=== PATIENT | female | born 1950 | race Caucasian/White ===

== ENCOUNTER 2023-03-09 16:18 | Observation (INO) ==
--- NOTE | 2023-03-09 16:47 | ED Triage Note ---
Date of Service March 09, 2023 History of Present Illness This patient was briefly evaluated while in triage. An abbreviated physical exam was performed. This patient is a 72-year-old Female who presents to the ED for evaluation of A- flutter. She had been having some chest pressure, fatigue, shortness of breath, and dizziness. She has had some nausea, fevers, headaches which occurred about 10 days ago. She went to her PCP today and was sent here. Physical Exam VITALS: Vitals are noted on the nurse's note and reviewed by myself. GENERAL: This is a 72-year-old female, in no acute distress, nondiaphoretic, well-developed well-nourished. HEART: Tachycardic, no murmurs gallops or rubs. LUNGS: Clear to auscultation bilaterally without wheezes, rales or rhonchi. NEURO: Patient was alert and oriented to person place and time. Initial orders for labs and / or imaging were placed and patient was placed in the waiting area until a bed is available. Please see further documentation for the full ED course. MDM / Impression Impression Impression: Atrial flutter
[2023-03-09] MEDS ORDERED: dilTIAZem HCl 5 MG/ML 5 ML VIAL IV STA (17:03)
[2023-03-09] MEDS ORDERED: SODIUM CHLORIDE 0.9% 1000ML 1,000 ML IV ONE (17:03)
--- NOTE | 2023-03-09 17:06 | Emergency Department Note ---
Impression & Plan Atrial flutter ADMIT ED Provider Note HPI: The patient is a 72-year-old female who presents emergency department chief complaint of palpitations. Patient states that she believes the palpitations been ongoing for at least 24 to 48 hours. Patient states that they have been intermittent in nature. On arrival here to the ED, the patient is noted to be tachycardic at 153, EKG is consistent with what appears to be atrial flutter. Patient denies any chest pain. Blood pressure stable on arrival at 131/55, the patient is saturating well on room air on arrival and otherwise appears to be in no acute distress. ROS: - Per HPI Differential Diagnosis: Atrial fibrillation with RVR, atrial flutter, SVT, amongst other potential pathologies. *Outpatient medications and allergy history reviewed. *Pertinent external medical records reviewed. PE: General: Alert HEENT: Normocephalic, trachea midline Eyes: Extraocular eye movement is intact, no scleral erythema Pulmonary: Clear to auscultation bilaterally, no wheezing Cardio: Tachycardic rate with regular rhythm GI: Abdomen is soft to palpation : No suprapubic tenderness MSK: No evidence of trauma or malformation of the extremities, no edema Skin: No evidence of rash Neuro: Alert, no focal deficits Psychiatric: Cooperative night monitor: (As interpreted by myself): - An order was placed for continuous cardiac monitoring - Patient was noted to be in atrial flutter with rate of 149 EKG: (As interpreted by myself): Rate: 151 Rhythm: Atrial flutter with 2-1 block Intervals: QTc 504 ms, otherwise within normal limits ST changes: No ST elevation Time: 1650 EKG #2: (As interpreted by myself): Rate: 73 Rhythm: Atrial flutter with 4-1 block Intervals: Within normal limits ST changes: No ST elevation Time: 1723 Interventions provided in ED: -IV fluid bolus, IV diltiazem bolus, IV diltiazem drip, IV Medical Decision Making: Shortly after the patient arrived she was placed on monitor tech, per my interpretation EKG on arrival shows evidence of atrial flutter with 2-1 AV block. Patient is otherwise hemodynamically stable, she denies any chest pain. Patient was ordered an IV fluid bolus as well as a dose of IV diltiazem, this did result in rate improvement into the 80s. Lab work shows no leukocytosis, hemoglobin is stable, platelet count is normal, CMP does not show any critical electrolyte abnormalities, creatinine is slightly elevated at 1.46 however this is baseline for the patient. Troponin is slightly elevated at 41.6 which I suspect is secondary to demand ischemia secondary to tachycardia/atrial flutter as the patient does not have any chest pain. I have low suspicion for ACS. On reevaluation the patient's heart rate did increase slightly into the low 100s, she was therefore given a dose of IV metoprolol and placed on diltiazem drip. Heart rate on reassessment he is in the 80s. I discussed all the above findings with the patient, she is in agreement for admission for further management. Given the patient's renal failure in addition to history of subdural hematoma, will defer anticoagulation strategy to the inpatient team. [facility] hospitalist service was consulted for admission and the patient was placed for admission in stable condition. Consultants: Hospitalist service, Dr. Sánchez Disposition discussion held by myself with: Patient * CRITICAL CARE TIME: ( 38 ) minutes -Time spent independent of any procedures in management of patient with tachyarrhythmia/atrial flutter requiring IV rate control medications, time spent at the bedside, interpretation of diagnostic studies, discussion with other healthcare providers and arrangement of admission Diagnosis: 1. Atrial flutter, acute, new onset 2. Elevated high-sensitivity troponin level 3. Chronic kidney disease Disposition: Admission Noel Mattson DO Emergency Medicine Past Med/Surg History Medical History (Updated 03/09/23 @ 19:12 by Noel Mattson DO) ADD (attention deficit disorder) no longer on medications Chronic back pain Chronic renal insufficiency GERD (gastroesophageal reflux disease) Insomnia Migraines Occlusion of left vertebral artery Surgical History H/O discectomy 2019 C7 with fusion [facility] H/O laminectomy 2017 H/O spinal fusion L5-S1 anterior approach done in [place] 1971 Hx of appendectomy 1967 [place] Family History Mother Breast cancer Diabetes Stroke Hypertension Grandfather (Maternal) Myocardial infarction Denies family history of Ovarian cancer Prostate cancer Colorectal cancer Social History Smoking Status: Never smoker Tobacco Type: Cigarettes Age Started Using Tobacco: 16; Age Quit Using Tobacco: 51; Second Hand Exposure: No; Do You Dip or Chew Tobacco: No; Hx Alcohol Use: Yes Alcohol type: wine Alcohol Intake Frequency: 4 or More x per/Week Hx Substance Use: No Preferred Language: Tongan Communication Ability: Effective Visual Impairment: Limited Hearing Ability: Normal Gauge Operator Required: No Beliefs That Will Affect Care: None marital status: Current Living Situation: Spouse current occupational status: retired How many Children do You have: 0 Feels Safe at Home: Yes Childhood Exposure to Second-Hand Smoke: Yes Diet: vegan caffeine: Yes (coffee) during the past year weight has: remained stable Dental Care, Regularly: Yes Physical Activity Frequency: Daily Seatbelt Use: always Sunscreen Use: Yes Do you think of yourself as: lesbian/zapata/homosexual Sexual Activity: has been sexually active within the last 12 months Gender Identity: Female Assistive Devices: Glasses Allergies Allergies Allergy/AdvReac Type Severity Reaction Status Date / Time No Known Allergies Allergy Verified 03/09/23 17:23 Home Meds Home Medications Medication Instructions Recorded Confirmed famotidine 20 mg tablet 20 mg PO DAILYBB 03/09/23 03/09/23 gabapentin 300 mg capsule 300 mg PO HS 03/09/23 03/09/23 Previous Rx's Medication Instructions Recorded levothyroxine 75 mcg tablet 75 mcg PO DAILY #90 tabs 02/27/23 tramadol 100 mg tablet 100 mg PO Q6H PRN pain #90 tabs 02/27/23 trazodone 50 mg tablet 50 mg PO HS PRN insomnia #90 tabs 02/27/23 Results & Data (ED) Vital Signs Vital Signs - 24 hr 03/09/23 16:43 03/09/23 17:05 03/09/23 17:05 Temperature 36.8 C Temperature Source Temporal Artery Scan Pulse Rate 153 H Pulse Rate [Apical] 145 H Pulse Rhythm [Apical] Respiratory Rate 20 12 Respiratory Effort / Characteristics Non-Labored Spontaneous Non-Labored Respiratory Depth Normal Normal Respiratory Pattern Blood Pressure 131/55 L Blood Pressure [Right Arm] 127/94 Blood Pressure Mean 80 Blood Pressure Mean [Right Arm] 105 Pulse Oximetry 95 97 Oxygen Delivery Method Room Air Room Air Room Air Sepsis Recent Fever Within 48 Hours No Sepsis New/Unexplained Change in Mental Status No Sepsis Action Taken by Nursing No Action Required 03/09/23 17:05 03/09/23 17:12 03/09/23 17:18 Temperature Temperature Source Pulse Rate 146 H 73 Pulse Rate [Apical] Pulse Rhythm [Apical] Respiratory Rate Respiratory Effort / Characteristics Respiratory Depth Respiratory Pattern Blood Pressure Blood Pressure [Right Arm] Blood Pressure Mean Blood Pressure Mean [Right Arm] Pulse Oximetry 99 Oxygen Delivery Method Room Air Sepsis Recent Fever Within 48 Hours Sepsis New/Unexplained Change in Mental Status Sepsis Action Taken by Nursing 03/09/23 17:25 03/09/23 18:15 03/09/23 18:24 Temperature Temperature Source Pulse Rate 102 H Pulse Rate [Apical] 75 81 Pulse Rhythm [Apical] Irregular Irregular Respiratory Rate 18 14 Respiratory Effort / Characteristics Non-Labored Non-Labored Respiratory Depth Normal Normal Respiratory Pattern Regular Regular Blood Pressure Blood Pressure [Right Arm] 123/85 125/86 Blood Pressure Mean Blood Pressure Mean [Right Arm] 97 99 Pulse Oximetry 99 96 Oxygen Delivery Method Room Air Room Air Sepsis Recent Fever Within 48 Hours Sepsis New/Unexplained Change in Mental Status Sepsis Action Taken by Nursing 03/09/23 18:49 Temperature Temperature Source Pulse Rate Pulse Rate [Apical] 76 Pulse Rhythm [Apical] Respiratory Rate 14 Respiratory Effort / Characteristics Respiratory Depth Normal Respiratory Pattern Blood Pressure Blood Pressure [Right Arm] 139/89 Blood Pressure Mean Blood Pressure Mean [Right Arm] 105 Pulse Oximetry 98 Oxygen Delivery Method Room Air Sepsis Recent Fever Within 48 Hours Sepsis New/Unexplained Change in Mental Status Sepsis Action Taken by Nursing Laboratory Data 03/09/23 16:58 03/09/23 16:58 Lab Results 03/09/23 03/09/23 Range/Units 16:58 16:58 WBC 7.56 (4.8-10.8) K/ul RBC 4.53 (4.20-5.40) M/uL Hgb 14.7 (12.0-16.0) g/dl Hct 43.4 (37.0-47.0) % MCV 95.8 (80.0-100.0) fL MCH 32.5 (25.0-34.0) pg MCHC 33.9 (32.0-36.0) g/dL RDW Std Deviation 42.4 (36.4-46.3) fL RDW Coeff of Carla 12.2 (11.5-14.5) % Plt Count 389 (130-400) K/uL MPV 8.2 L (9.4-12.4) fL Immature Gran % (Auto) 0.8 % Neut % (Auto) 58.7 % Lymph % (Auto) 28.4 % [place] % (Auto) 8.6 % Eos % (Auto) 2.4 % Baso % (Auto) 1.1 % Neut # (Auto) 4.44 (1.40-6.50) K/uL Lymph # (Auto) 2.15 (1.2-3.4) K/uL [place] # (Auto) 0.65 H (0.11-0.59) K/uL Eos # (Auto) 0.18 (0-0.50) K/uL Baso # (Auto) 0.08 (0-0.2) K/uL Immature Gran # (Auto) 0.06 (0.01-0.20) K/uL Sodium 139 (136-145) mmol/L Potassium 4.5 (3.5-5.1) mmol/L Chloride 108 H (98-107) mmol/L Carbon Dioxide 26 (21-32) mmol/L Anion Gap 5 (3-11) BUN 18 (6-23) mg/dl Creatinine 1.46 H (0.6-1.2) mg/dl Est Cr Clr Drug Dosing Not Reportable Est GFR ( Amer) 40.7 ml/min Est GFR (Non-Af Amer) 35.1 ml/min BUN/Creatinine Ratio 12.3 (10-20) Glucose 103 H (70-99(Fasting)) mg/dl Calcium 9.3 (8.6-10.3) mg/dl Total Bilirubin 0.3 (0.2-1.0) mg/dl AST 21 (13-39) U/L ALT 21 (7-52) U/L Alkaline Phosphatase 90 (34-104) U/L Troponin I High Sens 41.6 H (0-14) pg/ml Total Protein 7.4 (6.0-8.3) gm/dl Albumin 4.0 (3.4-5.0) gm/dl Globulin 3.4 (2.5-4.0) gm/dl Albumin/Globulin Ratio 1.2 (0.9-2) Administered Medications Diltiazem HCl 125 mg/ Dextrose 125 mls @ 5 mls/hr IV .Q24H [facility]; Protocol Stop: 04/08/23 18:14 Last Admin: 03/09/23 18:44 Dose: 5 mg/hr, 5 mls/hr Documented By: MELL Co-signed By: ACC Discontinued Medications Diltiazem HCl (Diltiazem Hcl 5 Mg/Ml 5 Ml Vial) 15 mg IV NOW STA Stop: 03/09/23 17:04 Last Admin: 03/09/23 17:10 Dose: 15 mg Documented By: MELL Co-signed By: ARS Sodium Chloride (Nss 1000ml) 1,000 mls @ 999 mls/hr IV .Q1H1M ONE Stop: 03/09/23 18:03 Last Infusion: 03/09/23 18:09 Dose: 0 mls/hr Documented By: Admin: 03/09/23 17:07 Dose: 999 mls/hr Documented By: MELL Metoprolol Tartrate (Metoprolol Tartrate 1 Mg/Ml Vial) 5 mg IV NOW STA Stop: 03/09/23 18:00 Last Admin: 03/09/23 18:15 Dose: 5 mg Documented By: MELL Miscellaneous (Stat Iv Infusion Titration Per Protocol) 1 each N/A NOW STA Stop: 03/09/23 18:12 Last Admin: 03/09/23 18:44 Dose: 1 each Documented By: MELL Imaging Data Radiologist's Impression: Chest X-Ray 03/09/23 16:47 XR chest 1V portable HISTORY: 72 years-old Female Chest pain, nonspecific COMPARISON: 08/02/2022 TECHNIQUE: AP view of the chest FINDINGS: Cardiomediastinal and hilar silhouettes are within normal limits. There is no pneumothorax, pleural effusion, airspace consolidation or pulmonary edema. Chronic left-sided rib fractures. Cervical spinal fusion hardware. IMPRESSION: No acute process. ACT 112: Negative or not required by law. The above report was generated using voice recognition software. It may contain grammatical, syntax or spelling errors. Electronically signed by: Ang Ch M.D. 03/09/2023 5:45 PM Discharge Plan Visit Data Chief Complaint: Cardiac Assessment Stated Complaint: A FIB ED Provider: Noel Mattson Discharge Problem: Atrial flutter Forms Stand Alone Forms: [facility] Prescriptions Prescriptions: No Action trazodone 50 mg tablet 50 mg PO HS PRN (Reason: insomnia) Qty: 90 1RF tramadol 100 mg tablet 100 mg PO Q6H PRN (Reason: pain) Qty: 90 0RF levothyroxine 75 mcg tablet 75 mcg PO DAILY Qty: 90 1RF famotidine 20 mg tablet 20 mg PO DAILYBB gabapentin 300 mg capsule 300 mg PO HS Referrals Referrals: Jackie Rosa MD [Primary Care Provider] -
[2023-03-09 17:20] LABS: Basophils # (auto) 0.08 K/uL (0-0.2); Basophils % (auto) 1.1 %; Eosinophils # (auto) 0.18 K/uL (0-0.50); Eosinophils % (auto) 2.4 %; Hematocrit (blood only) 43.4 % (37.0-47.0); Hemoglobin 14.7 g/dl (12.0-16.0); Immature Granulocytes # (auto) 0.06 K/uL (0.01-0.20); Immature Granulocytes % (auto) 0.8 %; Lymphocytes # (auto) 2.15 K/uL (1.2-3.4); Lymphocytes % (auto) 28.4 %; Mean Corpuscular Hemoglobin 32.5 pg (25.0-34.0); Mean Corpuscular Hgb Conc 33.9 g/dL (32.0-36.0); Mean Corpuscular Volume 95.8 fL (80.0-100.0); Mean Platelet Volume 8.2 fL (9.4-12.4); Monocytes # (auto) 0.65 K/uL (0.11-0.59); Monocytes % (auto) 8.6 %; Neutrophils # (auto) 4.44 K/uL (1.40-6.50); Neutrophils % (auto) 58.7 %; Platelet Count 389 K/uL (130-400); RDW Coefficient of Variation 12.2 % (11.5-14.5); RDW Standard Deviation 42.4 fL (36.4-46.3); Red Blood Count 4.53 M/uL (4.20-5.40); White Blood Count 7.56 K/ul (4.8-10.8)
[2023-03-09 17:38] LABS: Alanine Aminotransferase 21 U/L (7-52); Albumin Globulin Ratio 1.2 (0.9-2); Alkaline Phosphatase 90 U/L (34-104); Anion Gap 5 (3-11); Aspartate Aminotransferase 21 U/L (13-39); BUN Creatinine Ratio 12.3 (10-20); Bilirubin,Total 0.3 mg/dl (0.2-1.0); Blood Urea Nitrogen 18 mg/dl (6-23); Calcium 9.3 mg/dl (8.6-10.3); Carbon Dioxide 26 mmol/L (21-32); Chloride 108 mmol/L (98-107); Est GFR (African American) 40.7 ml/min; Est GFR (Non-African American) 35.1 ml/min; Globulin 3.4 gm/dl (2.5-4.0); Glucose 103 mg/dl (70-99(Fasting)); Potassium 4.5 mmol/L (3.5-5.1); Sodium 139 mmol/L (136-145); Total Protein 7.4 gm/dl (6.0-8.3)
[2023-03-09 17:44] LABS: Troponin I High Sensitivity 41.6 pg/ml (0-14)
--- NOTE | 2023-03-09 17:46 | XRay Report ---
XR chest 1V portable HISTORY: 72 years-old Female Chest pain, nonspecific COMPARISON: 08/02/2022 TECHNIQUE: AP view of the chest FINDINGS: Cardiomediastinal and hilar silhouettes are within normal limits. There is no pneumothorax, pleural e ffusion, airspace consolidation or pulmonary edema. Chronic left-sided rib fractures. Cervical spinal fusion hardware. IMPRESSION: No acute process. ACT 112: Negative or not required by law. The above report was generated using voice recognition software. It may contain grammatical, syntax o r spelling errors. Electronically signed by: Ang Ch M.D. 03/09/2023 5:45 PM
[2023-03-09] MEDS ORDERED: METOPROLOL TARTRATE 1 MG/ML VIAL IV STA (17:59)
[2023-03-09] MEDS ORDERED: STAT IV Infusion **Titration per Protocol STA (18:11)
[2023-03-09] MEDS ORDERED: dilTIAZem HCL 125 MG in DEXTROSE 5% 100 ML IV SCH (18:15)
[2023-03-09 19:34] LABS: Magnesium 2.4 mg/dl (1.7-2.4)
--- NOTE | 2023-03-09 20:10 | History & Physical Report ---
Date of Service March 09, 2023 Assessment & Plan (1) Atrial flutter with rapid ventricular response: (2) Chest pain: (3) Chronic renal insufficiency: (4) GERD (gastroesophageal reflux disease): (5) Chronic back pain: (6) Hypothyroid: (7) History of traumatic subdural hematoma: Plan New onset atrial flutter with RVR- The patient will be admitted to telemetry for serial cardiac enzymes, serial EKG's, cardiac rhythm monitoring and a 2-D echocardiogram with Dopplers. Potassium 4.5 and magnesium 2.4 Troponin 41.6, likely secondary to increased heart rate, but will continue to follow EKG shows atrial flutter with 4-1 block Continue Cardizem drip begun in the ED Consult cardiology We will order CT scan of head to further assess previous subdural hematoma prior to considering anticoagulation Chronic renal insufficiency- Creatinine 1.46, with range 1.32-1.55 Placed on NSS at 80 mils per hour x1 L and repeat laboratories in a.m. Hypothyroidism- Continue levothyroxine sodium 75 mcg daily GERD- Continue famotidine 40 mg with breakfast History of Present Illness Chief Complaint: The patient presents emergency department with complaint of 10 days of nausea, intermittent headaches, fatigue, muscle aches and generalized not feeling well. She has been renovating a house for a while, and yesterday was caring a lot of drywall, and felt her heart pounding. She went to her PCPs office today, and had an EKG which showed atrial flutter, and was referred to the ED for assessment Primary Care Provider: Jackie Rosa MD The patient is a 72-year-old with a past medical history including ADD, chronic back pain, chronic renal sufficiency, GERD, hypothyroidism, insomnia, migraines and occlusion of left vertebral artery. She did have a fall in July this year, where she injured her head, and there was question of a small subdural hematoma and left frontal area. She reports that she was sent out to the hospital, where they watch her, and no further intervention was performed. She does take an aspirin a couple times a week. She presents to the emergency department today after symptoms as noted above, and for further management of atrial flutter. The ED physician Dr. Fry has spoken with director mba on- call Dr. Nciole, and plan will be to admit patient to the telemetry unit on Cardizem drip, echocardiogram in the morning, and then discussion regarding possible cardioversion at a later date. Allergies Allergy/AdvReac Type Severity Reaction Status Date / Time No Known Allergies Allergy Verified 03/09/23 17:23 Home Medications Medication Instructions Recorded Confirmed Type levothyroxine 75 mcg tablet 75 mcg PO DAILY #90 tabs 02/27/23 03/09/23 Rx tramadol 100 mg tablet 100 mg PO Q6H PRN pain #90 tabs 02/27/23 03/09/23 Rx trazodone 50 mg tablet 50 mg PO HS PRN insomnia #90 tabs 02/27/23 03/09/23 Rx famotidine 20 mg tablet 20 mg PO DAILYBB 03/09/23 03/09/23 History gabapentin 300 mg capsule 300 mg PO HS 03/09/23 03/09/23 History Past Med/Surg History Medical History (Updated 03/09/23 @ 20:05 by Justice Sánchez MD) ADD (attention deficit disorder) no longer on medications Chronic back pain Chronic renal insufficiency GERD (gastroesophageal reflux disease) History of traumatic subdural hematoma Insomnia Migraines Occlusion of left vertebral artery Surgical History H/O discectomy 2019 C7 with fusion [facility] H/O laminectomy 2016 H/O spinal fusion L5-S1 anterior approach done in [place] 1971 Hx of appendectomy 1967 [place] Family History Mother Breast cancer Diabetes Stroke Hypertension Grandfather (Maternal) Myocardial infarction Denies family history of Ovarian cancer Prostate cancer Colorectal cancer Social History Smoking Status: Never smoker Tobacco Type: Cigarettes Age Started Using Tobacco: 16; Age Quit Using Tobacco: 51; Second Hand Exposure: No; Do You Dip or Chew Tobacco: No; Hx Alcohol Use: Yes Alcohol type: wine Alcohol Intake Frequency: 4 or More x per/Week Hx Substance Use: No Preferred Language: Serbian Communication Ability: Effective Visual Impairment: Limited Hearing Ability: Normal Planisher Required: No Beliefs That Will Affect Care: None marital status: Current Living Situation: Spouse current occupational status: retired How many Children do You have: 0 Feels Safe at Home: Yes Childhood Exposure to Second-Hand Smoke: Yes Diet: vegan caffeine: Yes (coffee) during the past year weight has: remained stable Dental Care, Regularly: Yes Physical Activity Frequency: Daily Seatbelt Use: always Sunscreen Use: Yes Do you think of yourself as: lesbian/zapata/homosexual Sexual Activity: has been sexually active within the last 12 months Gender Identity: Female Assistive Devices: Glasses Review of Systems Review of Systems: The patient denies chest pain, cough, lower extremity swelling, sore throat, fevers, chills, sweats, vomiting, diarrhea , constipation, abdominal pain, pelvic pain, blood in urine or stool, dysuria, urinary frequency or urgency, lightheadedness, dizziness, headache, memory loss, loss of consciousness, rash, abnormal bruising or bleeding, imbalance, focal or generalized weakness, numbness or tingling in arms or legs, generalized arthralgias or myalgias, change in chronic back or neck pain, or night sweats. The review of systems is otherwise negative other than for that already noted above, and at least 10 systems have been reviewed. Physical Exam Physical Exam: The patient is awake, alert and oriented 3, well developed and well nourished, normocephalic and atraumatic, lying in bed and in no acute distress. HEENT--PERRL, EOMI, mucous membranes and oropharynx normal. Neck--supple. No JVD. No bruits. Thyroid normal, trachea midline, no adenopathy. Heart--normal S1 and S2. No murmurs, rubs or gallops. Lungs--clear bilaterally, no respiratory distress, no accessory muscle use. Abdomen--normal bowel sounds and soft. Nontender. Nondistended, no hernias or masses, no organomegaly. Extremities--no cyanosis or clubbing. No edema. Dermatologic--normal skin turgor, normal color, no abnormal lymph nodes, no rash. Neurologic--cranial nerves II through XII grossly intact. Rheumatologic--normal range of motion. Psychiatric--normal affect. Results & Data Results & Data Vital Signs (Past 12 Hours) Vital Signs Temp Pulse Pulse Resp BP BP Pulse Ox 03/09/23 18:49 76 14 139/89 98 03/09/23 18:24 81 14 125/86 96 03/09/23 18:15 102 H 03/09/23 17:25 75 18 123/85 99 03/09/23 17:18 73 03/09/23 17:12 146 H 03/09/23 17:05 99 03/09/23 17:05 145 H 12 127/94 97 03/09/23 17:05 03/09/23 16:43 36.8 C 153 H 20 131/55 L 95 O2 Del Method 03/09/23 18:49 Room Air 03/09/23 18:24 Room Air 03/09/23 18:15 03/09/23 17:25 Room Air 03/09/23 17:18 03/09/23 17:12 03/09/23 17:05 Room Air 03/09/23 17:05 Room Air 03/09/23 17:05 Room Air 03/09/23 16:43 Room Air Laboratory Results Laboratory Results WBC 7.56 K/ul (4.8-10.8) 03/09/23 16:58 RBC 4.53 M/uL (4.20-5.40) 03/09/23 16:58 Hgb 14.7 g/dl (12.0-16.0) 03/09/23 16:58 Hct 43.4 % (37.0-47.0) 03/09/23 16:58 MCV 95.8 fL (80.0-100.0) 03/09/23 16:58 MCH 32.5 pg (25.0-34.0) 03/09/23 16:58 MCHC 33.9 g/dL (32.0-36.0) 03/09/23 16:58 RDW Std Deviation 42.4 fL (36.4-46.3) 03/09/23 16:58 RDW Coeff of Carla 12.2 % (11.5-14.5) 03/09/23 16:58 Plt Count 389 K/uL (130-400) 03/09/23 16:58 MPV 8.2 fL (9.4-12.4) L 03/09/23 16:58 Immature Gran % (Auto) 0.8 % 03/09/23 16:58 Neut % (Auto) 58.7 % 03/09/23 16:58 Lymph % (Auto) 28.4 % 03/09/23 16:58 [place] % (Auto) 8.6 % 03/09/23 16:58 Eos % (Auto) 2.4 % 03/09/23 16:58 Baso % (Auto) 1.1 % 03/09/23 16:58 Neut # (Auto) 4.44 K/uL (1.40-6.50) 03/09/23 16:58 Lymph # (Auto) 2.15 K/uL (1.2-3.4) 03/09/23 16:58 [place] # (Auto) 0.65 K/uL (0.11-0.59) H 03/09/23 16:58 Eos # (Auto) 0.18 K/uL (0-0.50) 03/09/23 16:58 Baso # (Auto) 0.08 K/uL (0-0.2) 03/09/23 16:58 Immature Gran # (Auto) 0.06 K/uL (0.01-0.20) 03/09/23 16:58 Sodium 139 mmol/L (136-145) 03/09/23 16:58 Potassium 4.5 mmol/L (3.5-5.1) 03/09/23 16:58 Chloride 108 mmol/L (98-107) H 03/09/23 16:58 Carbon Dioxide 26 mmol/L (21-32) 03/09/23 16:58 Anion Gap 5 (3-11) 03/09/23 16:58 BUN 18 mg/dl (6-23) 03/09/23 16:58 Creatinine 1.46 mg/dl (0.6-1.2) H 03/09/23 16:58 Est Cr Clr Drug Dosing Not Reportable 03/09/23 16:58 Est GFR ( Amer) 40.7 ml/min 03/09/23 16:58 Est GFR (Non-Af Amer) 35.1 ml/min 03/09/23 16:58 BUN/Creatinine Ratio 12.3 (10-20) 03/09/23 16:58 Glucose 103 mg/dl (70-99(Fasting)) H 03/09/23 16:58 Calcium 9.3 mg/dl (8.6-10.3) 03/09/23 16:58 Magnesium 2.4 mg/dl (1.7-2.4) 03/09/23 16:58 Total Bilirubin 0.3 mg/dl (0.2-1.0) 03/09/23 16:58 AST 21 U/L (13-39) 03/09/23 16:58 ALT 21 U/L (7-52) 03/09/23 16:58 Alkaline Phosphatase 90 U/L (34-104) 03/09/23 16:58 Troponin I High Sens 41.6 pg/ml (0-14) H 03/09/23 16:58 Total Protein 7.4 gm/dl (6.0-8.3) 03/09/23 16:58 Albumin 4.0 gm/dl (3.4-5.0) 03/09/23 16:58 Globulin 3.4 gm/dl (2.5-4.0) 03/09/23 16:58 Albumin/Globulin Ratio 1.2 (0.9-2) 03/09/23 16:58 Impressions Chest X-Ray 03/09/23 16:47 XR chest 1V portable HISTORY: 72 years-old Female Chest pain, nonspecific COMPARISON: 08/02/2022 TECHNIQUE: AP view of the chest FINDINGS: Cardiomediastinal and hilar silhouettes are within normal limits. There is no pneumothorax, pleural effusion, airspace consolidation or pulmonary edema. Chronic left-sided rib fractures. Cervical spinal fusion hardware. IMPRESSION: No acute process. ACT 112: Negative or not required by law. The above report was generated using voice recognition software. It may contain grammatical, syntax or spelling errors. Electronically signed by: Ang Ch M.D. 03/09/2023 5:45 PM Code Status & VTE Plan Code Status Full code VTE Prophylaxis Plan VTE Prophylaxis will be ordered: Yes PG Care Time/CCT Total # of Minutes Spent Total Time Spent with Patient: Total time spent is greater than 50% in coordination of care (as documented) at patient's floor/unit and/or counseling patient: Coding Level of Care Code 39347 INT INP/OBS CARE 3/75MIN Diagnoses Atrial flutter with rapid ventricular response I48.92 Chest pain R07.9 Chronic renal insufficiency N18.9 GERD (gastroesophageal reflux disease) K21.9 Chronic back pain M54.9; G89.29 Hypothyroid E03.9 History of traumatic subdural hematoma Z87.828
[2023-03-09] MEDS ORDERED: GABAPENTIN 300 MG CAP PO SCH (21:36)
[2023-03-09] MEDS ORDERED: SODIUM CHLORIDE 0.9% 1000ML 1,000 ML IV SCH (21:36)
[2023-03-09] MEDS ORDERED: ONDANSETRON INJ 2 MG/ML 2 ML VIAL IV PRN (21:36)
[2023-03-09] MEDS ORDERED: traZODone HCL 50 MG TAB PO PRN (21:36)
[2023-03-09] MEDS ORDERED: ACETAMINOPHEN 325 MG TAB PO PRN (21:36)
[2023-03-09] MEDS ORDERED: traMADol HCL 50 MG TABLET PO PRN (21:40)
--- NOTE | 2023-03-09 21:45 | CT Scan Report ---
Exam(s): CT HEAD Without Contrast EXAM: CT Head Without Intravenous Contrast CLINICAL HISTORY: Follow-up up of subdural hematoma. TECHNIQUE: Axial computed tomography images of the head/brain without intravenous contrast. CTDI is 36.86 mGy and DLP is 625.8 mGy-cm. Automated exposure control was utilized for the study. A dose lowering technique was utilized adhering to the principles of ALARA. COMPARISON: 1025 hrs. FINDINGS: Brain: The previously reported subdural hematoma noted along the left frontal convexity is not clearly delineated. The parenchyma is otherwise stable in appearance. No new mass effect. No significant white matter disease. Ventricles: No midline shift or ventriculomegaly. Bones/joints: Unremarkable. No acute fracture. Soft tissues: Unremarkable. Sinuses: Unremarkable as visualized. No acute sinusitis. Mastoid air cells: Unremarkable as visualized. No mastoid effusion. IMPRESSION: The previously reported subdural hematoma noted along the left frontal convexity is not clearly delineated. No new mass effect or midline shift. Electronically signed by: Maynor Lara MD 03/09/23 21:44 PM
[2023-03-10] MEDS ORDERED: LEVOTHYROXINE SODIUM 75 MCG TABLET PO SCH (06:30)
[2023-03-10] MEDS ORDERED: FAMOTIDINE 40 MG TABLET PO SCH (06:30)
[2023-03-10 07:17] LABS: Basophils # (auto) 0.06 K/uL (0-0.2); Basophils % (auto) 1.1 %; Eosinophils # (auto) 0.27 K/uL (0-0.50); Eosinophils % (auto) 4.8 %; Hematocrit (blood only) 39.9 % (37.0-47.0); Hemoglobin 13.5 g/dl (12.0-16.0); Immature Granulocytes # (auto) 0.04 K/uL (0.01-0.20); Immature Granulocytes % (auto) 0.7 %; Lymphocytes # (auto) 1.73 K/uL (1.2-3.4); Lymphocytes % (auto) 30.8 %; Mean Corpuscular Hemoglobin 32.2 pg (25.0-34.0); Mean Corpuscular Hgb Conc 33.8 g/dL (32.0-36.0); Mean Corpuscular Volume 95.2 fL (80.0-100.0); Mean Platelet Volume 8.2 fL (9.4-12.4); Monocytes # (auto) 0.54 K/uL (0.11-0.59); Monocytes % (auto) 9.6 %; Neutrophils # (auto) 2.97 K/uL (1.40-6.50); Platelet Count 339 K/uL (130-400); RDW Coefficient of Variation 12.4 % (11.5-14.5); RDW Standard Deviation 43.1 fL (36.4-46.3); Red Blood Count 4.19 M/uL (4.20-5.40); White Blood Count 5.61 K/ul (4.8-10.8)
[2023-03-10 07:34] LABS: Albumin Level 3.3 gm/dl (3.4-5.0); BUN Creatinine Ratio 11.9 (10-20); Calcium 8.4 mg/dl (8.6-10.3); Est GFR (African American) 52.6 ml/min; Est GFR (Non-African American) 45.4 ml/min; Magnesium 2.1 mg/dl (1.7-2.4); Potassium 4.3 mmol/L (3.5-5.1)
--- NOTE | 2023-03-10 09:03 | Hospitalist Progress Note ---
Date of Service March 10, 2023 Assessment & Plan (1) Atrial flutter with rapid ventricular response: (2) Chest pain: (3) Chronic renal insufficiency: (4) GERD (gastroesophageal reflux disease): (5) Chronic back pain: (6) Hypothyroid: (7) History of traumatic subdural hematoma: Plan New onset atrial flutter with RVR- The patient will be admitted to telemetry for serial cardiac enzymes, serial EKG's, cardiac rhythm monitoring and a 2-D echocardiogram with Dopplers. Potassium 4.5 and magnesium 2.4 Troponin 41.6, likely secondary to increased heart rate, but will continue to follow EKG shows atrial flutter with 4-1 block Continue Cardizem drip begun in the ED Consult cardiology We will order CT scan of head to further assess previous subdural hematoma prior to considering anticoagulation Chronic renal insufficiency- Creatinine 1.46, with range 1.32-1.55 Placed on NSS at 80 mils per hour x1 L and repeat laboratories in a.m. Hypothyroidism- Continue levothyroxine sodium 75 mcg daily GERD- Continue famotidine 40 mg with breakfast Admission and Anticipated Discharge Date Admission Date: March 09, 2023 Results & Data Results & Data Vital Signs (Past 12 Hours) Vital Signs Temp Pulse Pulse Resp BP Pulse Ox O2 Del Method 03/10/23 07:06 36.7 C 77 20 118/73 96 Room Air 03/10/23 03:00 36.4 C L 68 16 123/72 97 Room Air 03/10/23 00:00 84 03/09/23 21:30 Room Air 03/09/23 21:36 36.4 C L 95 H 16 132/87 98 Room Air 03/09/23 21:43 36.4 C L 95 H 16 132/87 98 Room Air PG Care Time/CCT Total # of Minutes Spent Total Time Spent with Patient: Total time spent is greater than 50% in coordination of care (as documented) at patient's floor/unit and/or counseling patient: Coding Diagnoses Atrial flutter with rapid ventricular response I48.92 Chest pain R07.9 Chronic renal insufficiency N18.9 GERD (gastroesophageal reflux disease) K21.9 Chronic back pain M54.9; G89.29 Hypothyroid E03.9 History of traumatic subdural hematoma Z87.828
--- NOTE | 2023-03-10 09:15 | XCELERA ---
[id number] \\[email or web address]_[id number]
[2023-03-10] MEDS ORDERED: METOPROLOL SUCC 50MG EXT REL TAB PO STA (12:42)
--- NOTE | 2023-03-10 12:52 | Cardiology Consultation ---
Date of Consultation March 10, 2023 Assessment & Plan (1) Atrial flutter with rapid ventricular response: -now asymptomatic with rate control. -may have been atrial flutter for up to 48 hours. -not yet on anticoagulation pending review of her head CT. -discussed CHARLENE directed cardioversion. She is not interested currently. -would convert intravenous diltiazem to oral metoprolol succinate (? 50 mg daily or b.i.d.). -will discuss the possibility of an atrial flutter ablation with Dr. Alexander. -consider hospital discharge later today. (2) Aortic valve insufficiency: -mild in degree on current echocardiogram. (3) Mitral regurgitation: -mild in degree on current echocardiogram. History of Present Illness Attending Physician: Becca Calderon, History of Present Illness Smita is a 72-year-old female admitted yesterday with atrial flutter and a rapid ventricular response. This consultation was ordered to assist in her cardiac management. The patient was in her usual state of health until Thursday morning when she began to note palpitations after moving some sheets of drywall. She checked her pulse and noted to be in the 140-150 beats per minute range. She sat down to rest and after several minutes, her heart rate dropped down to the upper 90s. She noted intermittent palpitations throughout today. On Thursday, she continues to note intermittent palpitations with an elevated heart rate. She presented to Dr. Love and an EKG noted atrial flutter with a rapid ventricular response. She was sent directly to the emergency room for further care. On arrival here, the same dysrhythmia was confirmed. She was started on a diltiazem drip and hospitalization was recommended. Of note, she was not started on anticoagulation due to her history of a subdural hematoma in July 2022. She has never known of an atrial dysrhythmia previously. Currently, the patient is resting comfortably in bed and without complaints. She has ambulated within the room without difficulty. Past medical and surgical history 1. Paroxysmal atrial flutter-February 2023 2. Mild aortic insufficiency 3. Mild mitral regurgitation 4. Hypothyroidism 5. GERD 6. Chronic renal failure 7. Left vertebral artery occlusion 8. Subdural hematoma-July 2022 9. C7 diskectomy-2018 10. L4-5 laminectomy -2016 11. L5-S1 spinal fusion -1971 12. Appendectomy -1967 Social history and lives with her Retired internal medicine physician No tobacco Occasional alcohol Family history Mother had CVA at 62, at 75 diabetic complications Father at 74 from unknown causes His sister at 80 he has had a CVA Review of systems A 10 point review systems was undertaken and negative except that described above. Allergies Allergy/AdvReac Type Severity Reaction Status Date / Time No Known Allergies Allergy Verified 03/09/23 17:23 Home Medications Medication Instructions Recorded Confirmed Type levothyroxine 75 mcg tablet 75 mcg PO DAILY #90 tabs 02/27/23 03/09/23 Rx tramadol 100 mg tablet 100 mg PO Q6H PRN pain #90 tabs 02/27/23 03/09/23 Rx trazodone 50 mg tablet 50 mg PO HS PRN insomnia #90 tabs 02/27/23 03/09/23 Rx famotidine 20 mg tablet 20 mg PO DAILYBB 03/09/23 03/09/23 History gabapentin 300 mg capsule 300 mg PO HS 03/09/23 03/09/23 History Patient History Medical History (Updated 03/10/23 @ 13:03 by Tono Lu MD) ADD (attention deficit disorder) no longer on medications Chronic back pain Chronic renal insufficiency GERD (gastroesophageal reflux disease) History of traumatic subdural hematoma Insomnia Migraines Occlusion of left vertebral artery Surgical History H/O discectomy 2019 C7 with fusion [facility] H/O laminectomy 2016 H/O spinal fusion L5-S1 anterior approach done in [place] 1971 Hx of appendectomy 1967 [place] Family History Mother Breast cancer Diabetes Stroke Hypertension Grandfather (Maternal) Myocardial infarction Denies family history of Ovarian cancer Prostate cancer Colorectal cancer Social History Smoking Status: Never smoker Tobacco Type: Cigarettes Age Started Using Tobacco: 16; Age Quit Using Tobacco: 51; Second Hand Exposure: No; Do You Dip or Chew Tobacco: No; Hx Alcohol Use: Yes Alcohol type: wine Alcohol Intake Frequency: 4 or More x per/Week Hx Substance Use: No Preferred Language: Upper Sorbian Communication Ability: Effective Visual Impairment: Limited Hearing Ability: Normal Research Instructor Required: No Beliefs That Will Affect Care: None marital status: Current Living Situation: Spouse current occupational status: retired How many Children do You have: 0 Feels Safe at Home: Yes Childhood Exposure to Second-Hand Smoke: Yes Diet: vegan caffeine: Yes (coffee) during the past year weight has: remained stable Dental Care, Regularly: Yes Physical Activity Frequency: Daily Seatbelt Use: always Sunscreen Use: Yes Do you think of yourself as: lesbian/zapata/homosexual Sexual Activity: has been sexually active within the last 12 months Gender Identity: Female Assistive Devices: None Physical Exam Physical Exam: In general is well-developed well-nourished white female no acute distress. HEENT exam is negative. Neck is supple with full carotid upstrokes. There are no carotid bruits. Jugular is pressure is flat at 90. There is no thyromegaly. Cardiovascular exam reveals a regular rhythm with distant heart sounds. No obvious murmurs. Lungs are clear without rales, rhonchi or wheezes. Abdomen is soft without bruits. Extremities reveal intact radial artery and posterior tibial pulses bilaterally. There is no peripheral edema. Results & Data Vital Signs (Past 12 Hours) Vital Signs Temp Pulse Pulse Resp BP Pulse Ox O2 Del Method 03/10/23 11:02 36.7 C 56 L 19 114/72 94 Room Air 03/10/23 09:00 84 03/10/23 07:06 36.7 C 77 20 118/73 96 Room Air 03/10/23 03:00 36.4 C L 68 16 123/72 97 Room Air PG Care Time/CCT Total # of Minutes Spent Total Time Spent with Patient: Total time spent is greater than 50% in coordination of care (as documented) at patient's floor/unit and/or counseling patient: Coding Level of Care Code 58676 INT INP/OBS CARE 3/75MIN Diagnoses Atrial flutter with rapid ventricular response I48.92 Aortic valve insufficiency I35.1 Mitral regurgitation I34.0
--- NOTE | 2023-03-10 15:57 | Electrocardiogram Report ---
Test Reason : Blood Pressure : / mmHG Vent. Rate : 073 BPM Atrial Rate : 292 BPM P-R Int : 000 ms QRS Dur : 092 ms QT Int : 412 ms P-R-T Axes : 083 018 058 degrees QTc Int : 453 ms Atrial flutter with 4:1 A-V conduction Nonspecific ST abnormality Abnormal ECG When compared with ECG of 09-MAR-2023 16:50, (unconfirmed) Vent. rate has decreased BY 78 BPM T wave inversion no longer evident in Inferior leads Nonspecific T wave abnormality, improved in Lateral leads Confirmed by Tono Lu ([id number]) on 03/10/2023 3:57:03 PM Referred By: REFERRED SELF Confirmed By:Tono Lu
--- NOTE | 2023-03-10 15:57 | Electrocardiogram Report ---
Test Reason : Blood Pressure : / mmHG Vent. Rate : 151 BPM Atrial Rate : 000 BPM P-R Int : 000 ms QRS Dur : 090 ms QT Int : 318 ms P-R-T Axes : 000 -37 071 degrees QTc Int : 504 ms Atrial flutter with 2 to 1 block Left axis deviation Abnormal ECG No previous ECGs available Confirmed by Tono Lu ([id number]) on 03/10/2023 3:56:39 PM Referred By: REFERRED SELF Confirmed By:Tono Lu
--- NOTE | 2023-03-10 16:04 | Electrocardiogram Report ---
Test Reason : Blood Pressure : / mmHG Vent. Rate : 077 BPM Atrial Rate : 308 BPM P-R Int : 000 ms QRS Dur : 170 ms QT Int : 384 ms P-R-T Axes : -60 -19 -62 degrees QTc Int : 434 ms Atrial flutter with 4:1 A-V conduction Right bundle branch block Inferior infarct , age undetermined T wave abnormality, consider lateral ischemia Abnormal ECG When compared with ECG of 09-MAR-2023 17:23, (unconfirmed) Right bundle branch block is now Present Inferior infarct is now Present Confirmed by Tono Lu ([id number]) on 03/10/2023 4:04:12 PM Referred By: REFERRED SELF Confirmed By:Tono Lu
--- NOTE | 2023-03-10 16:56 | Communication Note ---
Date of Service: March 10, 2023 By CMS guidelines, a determination that the admission or continued stay is not medically necessary has been made by a member of the UR committee and a ph ysician for this hospital stay, therefore a Code 44 will be completed and the Inpatient admission will be changed to outpatient. Wing Noriega MD member, Utilization Review Committee
--- NOTE | 2023-03-10 17:00 | Discharge Summary ---
Discharge Summary Date of Service March 10, 2023 Admission HPI Per Admitting Provider The patient is a 72-year-old with a past medical history including ADD, chronic back pain, chronic renal sufficiency, GERD, hypothyroidism, insomnia, migraines and occlusion of left vertebral artery. She did have a fall in July this year, where she injured her head, and there was question of a small subdural hematoma and left frontal area. She reports that she was sent out to the hospital, where they watch her, and no further intervention was performed. She does take an aspirin a couple times a week. She presents to the emergency department today after symptoms as noted above, and for further management of atrial flutter. The ED physician Dr. Fry has spoken with caterpillar tractor operator on- call Dr. Nicole, and plan will be to admit patient to the telemetry unit on Cardizem drip, echocardiogram in the morning, and then discussion regarding possible cardioversion at a later date. Admission Exam Per Admitting Provider The patient is awake, alert and oriented 3, well developed and well nourished, normocephalic and atraumatic, lying in bed and in no acute distress. HEENT--PERRL, EOMI, mucous membranes and oropharynx normal. Neck--supple. No JVD. No bruits. Thyroid normal, trachea midline, no adenopathy. Heart--normal S1 and S2. No murmurs, rubs or gallops. Lungs--clear bilaterally, no respiratory distress, no accessory muscle use. Abdomen--normal bowel sounds and soft. Nontender. Nondistended, no hernias or masses, no organomegaly. Extremities--no cyanosis or clubbing. No edema. Dermatologic--normal skin turgor, normal color, no abnormal lymph nodes, no rash. Neurologic--cranial nerves II through XII grossly intact. Rheumatologic--normal range of motion. Psychiatric--normal affect. Principal Dx & Hospital Course #1 = Principal Diagnosis (1) Atrial flutter with rapid ventricular response: (2) Chest pain: (3) GERD (gastroesophageal reflux disease): (4) Chronic back pain: (5) Hypothyroid: (6) History of traumatic subdural hematoma: (7) Chronic kidney disease, stage III (moderate): Plan New onset atrial flutter with RVR- Troponin 41.6, likely secondary to increased heart rate causing demand ischemia EKG and tele show atrial flutter with 4-1 block Cardizem gtt transitioned to metoprolol succinate 50mg PO BID, to continue on discharge Eliquis 5mg BID also to continue on discharge Cardiology Dr. Lu consulted, appreciate recs, will follow up outpatient CT scan of head without evidence of SDH (traumatic SDH in July this year), images reviewed with Radiology Dr. Catalan Chronic kidney disease stage III- Creatinine 1.46, with range 1.32-1.55 Placed on NSS at 80 mils per hour x1 L, repeat creatinine 1.18 Hypothyroidism- Continue levothyroxine sodium 75 mcg daily GERD- Continue famotidine 40 mg daily Discharge Exam Constitutional WD/WN, vitals as above Respiratory normal respiratory effort, lungs clear to auscultation Cardiovascular heart rate regularly irregular, nontachycardic Psychiatric A+Ox3, euthymic affect Updated Medication List Medication Instructions Recorded Confirmed Type levothyroxine 75 mcg tablet 75 mcg PO DAILY #90 tabs 02/27/23 03/09/23 Rx tramadol 100 mg tablet 100 mg PO Q6H PRN pain #90 tabs 02/27/23 03/09/23 Rx trazodone 50 mg tablet 50 mg PO HS PRN insomnia #90 tabs 02/27/23 03/09/23 Rx famotidine 20 mg tablet 20 mg PO DAILYBB 03/09/23 03/09/23 History gabapentin 300 mg capsule 300 mg PO HS 03/09/23 03/09/23 History apixaban 5 mg tablet (Eliquis) 5 mg PO BID 30 days #60 tabs 03/10/23 Rx metoprolol succinate 50 mg 50 mg PO BID 30 days #60 tabs 03/10/23 Rx tablet,extended release 24 hr Hospital Stay Data Consultations 03/09/23 18:07 ED Decision to Admit Stat 03/09/23 21:36 Consult Cardiology Routine Diagnostic Imagining Performed 03/09/23 20:09 CT head/brain wo con Urgent Pending Results Patient Have Any Pending Studies at Discharge: No Discharge Instructions Given to Patient (Per Discharging Provider) You were admitted to the hospital for evaluation and management of heart palpitations and fast heart rates. You were found to have atrial flutter, and you were initially started on IV medication to slow the heart rate down called diltiazem, and you were transitioned on discharge to metoprolol succinate. You will take a 50 mg tablet twice daily (starting this evening), with follow-up with the caterpillar tractor operator Dr. Lu. You will also go on medication called Eliquis, and anticoagulant medication to help decrease risk of strokes in folks with atrial rhythms. This medication is a blood thinner, so take care with regard to falls, as you will be at increased risk of bleeding. Your CT scan last night did not show any evidence of the subdural hematoma you had from your fall in July. Total Time Total Time Spent Total Time Spent (In Minutes): 40 min Coding Level of Care Code 00867 INP/OBS DISCH >30 MIN Diagnoses Atrial flutter with rapid ventricular response I48.92 Chest pain R07.9 GERD (gastroesophageal reflux disease) K21.9 Chronic back pain M54.9; G89.29 Hypothyroid E03.9 History of traumatic subdural hematoma Z87.828 Chronic kidney disease, stage III (moderate) N18.30
[2023-03-11] MEDS ORDERED: METOPROLOL SUCC 50MG EXT REL TAB PO SCH (09:00)
== END 2023-03-10 17:59 | disposition home or self-care (01) ==
LOC: ED 16:18 → SUATTDRO 19:49 → INTOOBSV 19:49 → 2S 19:49

== ENCOUNTER 2023-08-05 19:44 | Inpatient (IN) ==
--- NOTE | 2023-08-05 20:56 | Emergency Department Note ---
Impression & Plan Closed right tibial fracture, Coagulopathy ED Provider Note NAME: СЕРГЕЙ LAMAR AGE: 73 SEX: F : 1950 ARRIVES VIA: Ambulance INFORMANT: [Patient] ED PROVIDER(S): [Shaun Schmitz MD] CHIEF COMPLAINT: Leg pain HISTORY OF PRESENT ILLNESS: The patient is a 73-year-old female who states that a very short time ago, her horse stepped on her right tib-fib. She felt the bones move and she is concerned for fracture. She could not walk. She received morphine on the way here and this has helped the pain. Patient is on Eliquis for A-fib. She states that the horse sort of pulled her down, she slid down along the stall but did not really fall per se. There was no head injury. She has no chest pain or back pain or extremity pain. She states that when she was on the ground, the horse stepped backwards and stepped on her leg. PMHx/PSHx/Social Hx: See Below PHYSICAL EXAM: GENERAL: Patient is in no acute distress. HEENT: No acute trauma, normocephalic atraumatic, mucous membranes moist, no nasal congestion. NECK: No stridor, no adenopathy, no meningismus, trachea is midline. LUNGS: Clear to auscultation bilaterally, no wheeze, no rhonchi, breath sounds equal. HEART: Without murmurs gallops or rubs, regular rate and rhythm. ABDOMEN: Soft, nontender, no peritonitis. EXTREMITIES: No cyanosis. The patient appears to have a slight deformity to the right mid to distal tib-fib. She is tender here. There is no firmness to the muscles that would suggest compartment syndrome. She has a strong distal dorsalis pedis pulse on the right. No laceration or open wound. NEUROLOGIC: Oriented x 3, no acute motor or sensory deficits, no focal weakness. SKIN: No jaundice, no diaphoresis. DIFFERENTIAL DIAGNOSIS: Fracture, hematoma, compartment syndrome, neurovascular compromise, sprain, strain, among others. EMERGENCY DEPARTMENT PROCEDURES: Splint Care: After the ortho glass splint was placed by the platform consultant, I examined the splint and confirmed proper application/placement/position. Neurovascular status was intact both proximal and distal to the splinted area. MEDICAL DECISION MAKING: There is no leukocytosis or concerning anemia. There is a normal platelet count. No coagulopathy. Renal panel testing is still pending. ECG shows a normal sinus rhythm, no ischemia or dysrhythmia. Right tib-fib film does show a distal tibial fracture. On exam, there was no laceration or evidence for an open injury. She had a strong distal dorsalis pedis pulse. No evidence clinically for compartment syndrome. Patient was ordered for morphine for pain, Zofran for nausea. She had a splint applied to the right tib-fib. I did speak with orthopedics. The patient is being hospitalized so we can assess for the possibility of developing compartment syndrome. She is more at risk as she uses Eliquis. Luckily, she did not take her evening Eliquis dose yet today. I spoke with the patient and case management, the on-call hospitalist was consulted. Prior/Outside records/notes reviewed: Today's EMS notes. ECG per my interpretation: Indication was history of atrial flutter. The ECG shows a normal sinus rhythm with a rate of 60. There is an incomplete right bundle branch block. There is some nonspecific ST change. No ST elevation, no PVCs. QTc is 442. Imaging/x-ray results per my interpretation: Right tib-fib film shows a distal tibia fracture with minimal displacement Chronic Medical/Social conditions affecting care: Chronic anticoagulation. Care/Management discussed with: Orthopedics-Dr. Islas. Case management and the on-call hospitalist. Level of care consideration(s): After review of the information above and other included data: --I believe the patient requires escalation of care to admission DISPOSITION: Admission with orthopedic consult Past Med/Surg History Medical History History of traumatic subdural hematoma Chronic renal insufficiency Occlusion of left vertebral artery Migraines Insomnia ADD (attention deficit disorder) no longer on medications GERD (gastroesophageal reflux disease) Chronic back pain Surgical History H/O discectomy Hx of appendectomy H/O laminectomy H/O spinal fusion Family History Mother Breast cancer Diabetes Stroke Hypertension Grandfather (Maternal) Myocardial infarction Denies family history of Ovarian cancer Prostate cancer Colorectal cancer Social History Smoking Status: Unknown if ever smoked Tobacco Type: Cigarettes Age Started Using Tobacco: 16; Age Quit Using Tobacco: 51; Second Hand Exposure: No; Do You Dip or Chew Tobacco: No; Hx Alcohol Use: Yes Alcohol type: wine Alcohol Intake Frequency: 4 or More x per/Week Hx Substance Use: No Preferred Language: Ivorian Communication Ability: Effective Visual Impairment: Limited Hearing Ability: Normal Slug Press Operator Required: No Beliefs That Will Affect Care: None marital status: Current Living Situation: Spouse current occupational status: retired How many Children do You have: 0 Feels Safe at Home: Yes Childhood Exposure to Second-Hand Smoke: Yes Diet: vegan caffeine: Yes (coffee) during the past year weight has: remained stable Dental Care, Regularly: Yes Physical Activity Frequency: Daily Seatbelt Use: always Sunscreen Use: Yes Do you think of yourself as: lesbian/zapata/homosexual Sexual Activity: has been sexually active within the last 12 months Gender Identity: Female Assistive Devices: None Allergies Allergies Allergy/AdvReac Type Severity Reaction Status Date / Time No Known Allergies Allergy Verified 08/05/23 21:52 Home Meds Home Medications Medication Instructions Recorded Confirmed famotidine 20 mg tablet 40 mg PO DAILYBB 03/11/23 08/05/23 cholecalciferol (vitamin D3) 50 50 mcg PO DAILY 08/05/23 08/05/23 mcg (2,000 unit) capsule (Vitamin D3) cyanocobalamin (vitamin B-12) 1,000 mcg PO DAILY 08/05/23 08/05/23 1,000 mcg tablet (Vitamin B-12) fexofenadine 180 mg tablet 180 mg PO DAILY 08/05/23 08/05/23 multivitamin 1 tab PO DAILY 08/05/23 08/05/23 Previous Rx's Medication Instructions Recorded tramadol 100 mg tablet 100 mg PO Q6H PRN pain #90 tabs 02/27/23 levothyroxine 75 mcg tablet 75 mcg PO DAILY #90 tabs 05/29/23 trazodone 50 mg tablet 50 mg PO HS PRN insomnia #90 tabs 05/29/23 apixaban 5 mg tablet (Eliquis) 5 mg PO BID #120 tabs 06/02/23 metoprolol succinate 25 mg 25 mg PO DAILY #30 tabs 07/03/23 tablet,extended release 24 hr Results & Data (ED) Vital Signs Vital Signs - 24 hr 08/05/23 19:50 08/05/23 19:56 08/05/23 19:57 Temperature 36.8 C Temperature Source Oral Pulse Rate 73 70 73 Pulse Rate from SpO2 Sensor 75 Respiratory Rate 20 17 Respiratory Effort / Characteristics Non-Labored Spontaneous Respiratory Depth Normal Respiratory Pattern Regular Blood Pressure 168/82 H Blood Pressure Mean 110 Blood Pressure Position Lying Pulse Oximetry 96 92 Oxygen Delivery Method Room Air Sepsis Recent Fever Within 48 Hours No Sepsis New/Unexplained Change in Mental Status No Sepsis Action Taken by Nursing No Action Required 08/05/23 20:00 08/05/23 20:00 08/05/23 20:30 Temperature Temperature Source Pulse Rate 68 Pulse Rate from SpO2 Sensor 68 Respiratory Rate 15 Respiratory Effort / Characteristics Respiratory Depth Respiratory Pattern Blood Pressure 137/67 134/58 L Blood Pressure Mean 91 102 Blood Pressure Position Pulse Oximetry 93 Oxygen Delivery Method Sepsis Recent Fever Within 48 Hours Sepsis New/Unexplained Change in Mental Status Sepsis Action Taken by Nursing 08/05/23 20:30 08/05/23 21:00 08/05/23 21:00 Temperature Temperature Source Pulse Rate 61 69 Pulse Rate from SpO2 Sensor 61 70 Respiratory Rate 18 23 Respiratory Effort / Characteristics Respiratory Depth Respiratory Pattern Blood Pressure 135/75 Blood Pressure Mean 100 Blood Pressure Position Pulse Oximetry 94 94 Oxygen Delivery Method Sepsis Recent Fever Within 48 Hours Sepsis New/Unexplained Change in Mental Status Sepsis Action Taken by Nursing 08/05/23 21:30 08/05/23 21:30 08/05/23 22:00 Temperature Temperature Source Pulse Rate 62 69 Pulse Rate from SpO2 Sensor 62 69 Respiratory Rate 21 25 H Respiratory Effort / Characteristics Respiratory Depth Respiratory Pattern Blood Pressure 136/77 Blood Pressure Mean 95 Blood Pressure Position Pulse Oximetry 95 96 Oxygen Delivery Method Sepsis Recent Fever Within 48 Hours Sepsis New/Unexplained Change in Mental Status Sepsis Action Taken by Nursing 08/05/23 22:00 08/05/23 22:30 08/05/23 22:46 Temperature Temperature Source Pulse Rate 70 Pulse Rate from SpO2 Sensor Respiratory Rate 14 Respiratory Effort / Characteristics Respiratory Depth Respiratory Pattern Blood Pressure 128/67 131/70 Blood Pressure Mean 89 88 Blood Pressure Position Pulse Oximetry Oxygen Delivery Method Sepsis Recent Fever Within 48 Hours Sepsis New/Unexplained Change in Mental Status Sepsis Action Taken by Nursing 08/05/23 22:46 Temperature Temperature Source Pulse Rate 63 Pulse Rate from SpO2 Sensor 63 Respiratory Rate 14 Respiratory Effort / Characteristics Respiratory Depth Respiratory Pattern Blood Pressure Blood Pressure Mean Blood Pressure Position Pulse Oximetry 95 Oxygen Delivery Method Sepsis Recent Fever Within 48 Hours Sepsis New/Unexplained Change in Mental Status Sepsis Action Taken by Group Home Medications Current Medication List: was personally reviewed by me Laboratory Data Attestation: I reviewed the patient's lab results. 08/05/23 20:00 08/05/23 20:00 Lab Results 08/05/23 Range/Units 20:00 WBC 7.21 (4.8-10.8) K/ul RBC 4.31 (4.20-5.40) M/uL Hgb 13.9 (12.0-16.0) g/dl Hct 42.5 (37.0-47.0) % MCV 98.6 (80.0-100.0) fL MCH 32.3 (25.0-34.0) pg MCHC 32.7 (32.0-36.0) g/dL RDW Std Deviation 47.3 H (36.4-46.3) fL RDW Coeff of Carla 13.0 (11.5-14.5) % Plt Count 275 (130-400) K/uL MPV 8.9 L (9.4-12.4) fL PT 10.3 (9.0-12.0) Seconds INR 0.9 (0.9-1.1) APTT 28 (21-31) Seconds PTT Ratio 1.0 Administered Medications Morphine Sulfate (Morphine Sulfate 2 Mg/Ml Carp) 2 mg IV Q15M PRN PRN Reason: Pain Stop: 08/19/23 22:31 Last Admin: 08/05/23 22:48 Dose: 2 mg Documented By: CPB Discontinued Medications Ondansetron HCl (Ondansetron Inj 2 Mg/Ml 2 Ml Vial) 4 mg IV NOW STA Stop: 08/05/23 22:33 Last Admin: 08/05/23 22:48 Dose: 4 mg Documented By: CPB Imaging Data Radiologist's Impression: Tibia/Fibula X-Ray 08/05/23 20:48 RIGHT TIBIA AND FIBULA 2 VIEWS CLINICAL HISTORY: Trauma. Right leg injury. FINDINGS: AP and crosstable lateral views of the right tibia and fibula are obtained. No prior studies are available for comparison at the time of dictation. The skeletal structures are well-mineralized. There is a comminuted spiral fracture through the distal tibial shaft. Overlying soft tissue edema is observed. There is medial displacement of the distal fragment by up to 6 mm. No fibular fracture is seen. The knee and ankle joints are grossly maintained. IMPRESSION: Distal tibial fracture as above with overlying soft tissue edema. Electronically signed by: Shaun Alex M.D. 08/05/2023 10:12 PM Discharge Plan Visit Data Chief Complaint: Leg Injury/Pain Stated Complaint: R LEG FX, HORSE STEPPED ON IT ED Provider: Shaun Schmitz Discharge Problem: Closed right tibial fracture, Coagulopathy Patient Disposition: Admitted As Inpatient Condition: Good Discharge Problem: Closed right tibial fracture Qualifiers: Encounter type: initial encounter Tibia location: distal Fracture morphology: u nspecified fracture morphology Qualified Code(s): S82.301A - Unspecified fracture of lower end of right tibia, initial encounter for closed fracture
--- NOTE | 2023-08-05 22:14 | XRay Report ---
RIGHT TIBIA AND FIBULA 2 VIEWS CLINICAL HISTORY: Trauma. Right leg injury. FINDINGS: AP and crosstable lateral views of the right tibia and fibula are obtained. No prior studie s are available for comparison at the time of dictation. The skeletal structures are well-mineralized . There is a comminuted spiral fracture through the distal tibial shaft. Overlying soft tissue edema is observed. There is medial displacement of the distal fragment by up to 6 mm. No fibular fracture i s seen. The knee and ankle joints are grossly maintained. IMPRESSION: Distal tibial fracture as above with overlying soft tissue edema. Electronically signed by: Shaun Alex M.D. 08/05/2023 10:12 PM
[2023-08-05 22:24] LABS: Hematocrit (blood only) 42.5 % (37.0-47.0); Hemoglobin 13.9 g/dl (12.0-16.0); Mean Corpuscular Hemoglobin 32.3 pg (25.0-34.0); Mean Corpuscular Hgb Conc 32.7 g/dL (32.0-36.0); Mean Corpuscular Volume 98.6 fL (80.0-100.0); Mean Platelet Volume 8.9 fL (9.4-12.4); Platelet Count 275 K/uL (130-400); RDW Standard Deviation 47.3 fL (36.4-46.3); Red Blood Count 4.31 M/uL (4.20-5.40); White Blood Count 7.21 K/ul (4.8-10.8)
[2023-08-05 22:30] LABS: INR 0.9 (0.9-1.1); Partial Thromboplastin Time 28 Seconds (21-31); Prothrombin Time 10.3 Seconds (9.0-12.0)
[2023-08-05] MEDS ORDERED: ONDANSETRON INJ 2 MG/ML 2 ML VIAL IV STA (22:32)
[2023-08-05] MEDS ORDERED: MoRPHine SULFATE 2 MG/ML CARP IV PRN (22:32)
[2023-08-05] MEDS ORDERED: HYDROmorphone INJ 0.5 MG/0.5 ML SYR IV PRN (22:53)
--- NOTE | 2023-08-05 22:59 | History & Physical Report ---
Date of Service August 05, 2023 Assessment & Plan (1) Closed right tibial fracture: (2) Chronic anticoagulation: (3) Atrial flutter: (4) Acute kidney injury superimposed on CKD: (5) Chronic kidney disease, stage III (moderate): (6) Mitral regurgitation: (7) Aortic valve insufficiency: (8) LVH (left ventricular hypertrophy): (9) GERD (gastroesophageal reflux disease): Plan Closed right tibial fracture- Status post injury from being kicked by a horse N.p.o. after midnight Neurochecks every 2 hours Acetaminophen 1 g IV every 8 hours as needed for mild pain or fever Dilaudid 0.25 mg IV every 3 hours as needed for moderate pain Dilaudid 0.5 mg IV every 3 hours as needed for severe pain Zofran 4 mg IV every 6 hours as needed Famotidine 20 mg IV every 12 hours Orthopedic surgery has been consulted by emergency department Atrial flutter with RVR/hypertension/aortic valve insufficiency/mitral regurgitation- Holding Eliquis in preparation for upcoming surgery Continue metoprolol succinate extended release 25 mg daily Acute kidney injury superimposed on CKD- Creatinine 1.40, with base 1.18 NSS at 80 mL/h, recheck laboratories in a.m Hypothyroidism- Continue levothyroxine 75 mcg daily. History of Present Illness Chief Complaint: The patient presents to the emergency department via ambulance with acute onset of right leg pain after being stepped on by her horse prior to arrival to the em ergency department. Primary Care Provider: Jackie Rosa MD The patient is a 73-year-old female with a past medical history including LVH, CKD stage III, mitral regurgitation, aortic valve insufficiency, history of traumatic subdural hematoma, occlusion of left vertebral artery, atrial flutter, GERD, chronic back pain and hypothyroidism. She presents to the emergency department after accidentally being stepped on by her horse while taking care of it earlier this evening prior to arrival. After the injury, she was unable to bear weight due to severe pain, and was brought to the emergency department via ambulance. X-rays in the emergency department revealed a closed right tibial shaft fracture, was placed in an immobilizer, and she was referred for evaluation for admission Allergies Allergy/AdvReac Type Severity Reaction Status Date / Time No Known Allergies Allergy Verified 08/05/23 21:52 Home Medications Medication Instructions Recorded Confirmed Type tramadol 100 mg tablet 100 mg PO Q6H PRN pain #90 tabs 02/27/23 08/05/23 Rx famotidine 20 mg tablet 40 mg PO DAILYBB 03/11/23 08/05/23 History levothyroxine 75 mcg tablet 75 mcg PO DAILY #90 tabs 05/29/23 08/05/23 Rx trazodone 50 mg tablet 50 mg PO HS PRN insomnia #90 tabs 05/29/23 08/05/23 Rx apixaban 5 mg tablet (Eliquis) 5 mg PO BID #120 tabs 06/02/23 08/05/23 Rx metoprolol succinate 25 mg 25 mg PO DAILY #30 tabs 07/03/23 08/05/23 Rx tablet,extended release 24 hr cholecalciferol (vitamin D3) 50 50 mcg PO DAILY 08/05/23 08/05/23 History mcg (2,000 unit) capsule (Vitamin D3) cyanocobalamin (vitamin B-12) 1,000 mcg PO DAILY 08/05/23 08/05/23 History 1,000 mcg tablet (Vitamin B-12) fexofenadine 180 mg tablet 180 mg PO DAILY 08/05/23 08/05/23 History multivitamin 1 tab PO DAILY 08/05/23 08/05/23 History Past Med/Surg History Medical History (Updated 08/06/23 @ 01:46 by Justice Sánchez MD) Chronic anticoagulation History of traumatic subdural hematoma Chronic renal insufficiency Occlusion of left vertebral artery Migraines Insomnia ADD (attention deficit disorder) no longer on medications GERD (gastroesophageal reflux disease) Chronic back pain Surgical History H/O discectomy 2019 C7 with fusion [facility] Hx of appendectomy 1968 [place] H/O laminectomy 2017 H/O spinal fusion L5-S1 anterior approach done [place] 1971 Family History Mother Breast cancer Diabetes Stroke Hypertension Grandfather (Maternal) Myocardial infarction Denies family history of Ovarian cancer Prostate cancer Colorectal cancer Social History Smoking Status: Unknown if ever smoked Tobacco Type: Cigarettes Age Started Using Tobacco: 16; Age Quit Using Tobacco: 51; Second Hand Exposure: No; Do You Dip or Chew Tobacco: No; Hx Alcohol Use: Yes Alcohol type: wine Alcohol Intake Frequency: 4 or More x per/Week Hx Substance Use: No Preferred Language: Vietnamese Communication Ability: Effective Visual Impairment: Limited Hearing Ability: Normal Counter Dish Carrier Required: No Beliefs That Will Affect Care: None marital status: Current Living Situation: Spouse current occupational status: retired How many Children do You have: 0 Feels Safe at Home: Yes Childhood Exposure to Second-Hand Smoke: Yes Diet: vegan caffeine: Yes (coffee) during the past year weight has: remained stable Dental Care, Regularly: Yes Physical Activity Frequency: Daily Seatbelt Use: always Sunscreen Use: Yes Do you think of yourself as: lesbian/zapata/homosexual Sexual Activity: has been sexually active within the last 12 months Gender Identity: Female Assistive Devices: None Review of Systems Review of Systems: The patient denies chest pain, palpitations, shortness of breath, dyspnea on exertion, cough, sore throat, fevers, chills, sweats, weight change, fatigue, nausea, vomiting, diarrhea , constipation, abdominal pain, pelvic pain, blood in urine or stool, dysuria, urinary frequency or urgency, lightheadedness, dizziness, headache, memory loss, loss of consciousness, rash, focal or generalized weakness, numbness or tingling in arms or left leg, generalized arthralgias or myalgias, back or neck pain, or night sweats. The review of systems is otherwise negative other than for that already noted above, and at least 10 systems have been reviewed. Physical Exam Physical Exam: The patient is awake, alert and oriented 3, well developed and well nourished, normocephalic and atraumatic, lying in bed and in no acute distress. HEENT--PERRL, EOMI, mucous membranes and oropharynx normal Neck--supple. No JVD. No bruits. Thyroid normal, trachea midline, no adenopathy. Heart--normal S1 and S2. No murmurs, rubs or gallops. Lungs--clear bilaterally, no respiratory distress, no accessory muscle use. Abdomen--normal bowel sounds and soft. Nontender. Nondistended, no hernias or masses, no organomegaly. Extremities--no cyanosis or clubbing. No edema. There are good distal pulses b/l. Right lower leg wrapped in immobilizer Dermatologic--normal skin turgor, normal color, no abnormal lymph nodes, no rash. Neurologic--cranial nerves II through XII grossly intact. Rheumatologic--normal range of motion except for right lower extremity Psychiatric--normal affect. Results & Data Results & Data Vital Signs (Past 12 Hours) Vital Signs Temp Pulse Resp BP Pulse Ox O2 Del Method 08/05/23 19:56 70 08/05/23 19:50 36.8 C 73 20 168/82 H 96 Room Air Laboratory Results Laboratory Results WBC 7.21 K/ul (4.8-10.8) 08/05/23 20:00 RBC 4.31 M/uL (4.20-5.40) 08/05/23 20:00 Hgb 13.9 g/dl (12.0-16.0) 08/05/23 20:00 Hct 42.5 % (37.0-47.0) 08/05/23 20:00 MCV 98.6 fL (80.0-100.0) 08/05/23 20:00 MCH 32.3 pg (25.0-34.0) 08/05/23 20:00 MCHC 32.7 g/dL (32.0-36.0) 08/05/23 20:00 RDW Std Deviation 47.3 fL (36.4-46.3) H 08/05/23 20:00 RDW Coeff of Carla 13.0 % (11.5-14.5) 08/05/23 20:00 Plt Count 275 K/uL (130-400) 08/05/23 20:00 MPV 8.9 fL (9.4-12.4) L 08/05/23 20:00 PT 10.3 Seconds (9.0-12.0) 08/05/23 20:00 INR 0.9 (0.9-1.1) 08/05/23 20:00 APTT 28 Seconds (21-31) 08/05/23 20:00 PTT Ratio 1.0 08/05/23 20:00 Sodium 137 mmol/L (136-145) 08/05/23 20:00 Potassium 4.1 mmol/L (3.5-5.1) 08/05/23 20:00 Chloride 106 mmol/L (98-107) 08/05/23 20:00 Carbon Dioxide 21 mmol/L (21-32) 08/05/23 20:00 Anion Gap 10 (3-11) 08/05/23 20:00 BUN 18 mg/dl (6-23) 08/05/23 20:00 Creatinine 1.40 mg/dl (0.6-1.2) H 08/05/23 20:00 Est Cr Clr Drug Dosing 38.0 ml/min 08/05/23 20:00 Est GFR ( Amer) 42.5 ml/min 08/05/23 20:00 Est GFR (Non-Af Amer) 36.7 ml/min 08/05/23 20:00 BUN/Creatinine Ratio 12.9 (10-20) 08/05/23 20:00 Glucose 88 mg/dl (70-99(Fasting)) 08/05/23 20:00 Calcium 9.3 mg/dl (8.6-10.3) 08/05/23 20:00 Impressions Tibia/Fibula X-Ray 08/05/23 20:48 RIGHT TIBIA AND FIBULA 2 VIEWS CLINICAL HISTORY: Trauma. Right leg injury. FINDINGS: AP and crosstable lateral views of the right tibia and fibula are obtained. No prior studies are available for comparison at the time of dictation. The skeletal structures are well-mineralized. There is a comminuted spiral fracture through the distal tibial shaft. Overlying soft tissue edema is observed. There is medial displacement of the distal fragment by up to 6 mm. No fibular fracture is seen. The knee and ankle joints are grossly maintained. IMPRESSION: Distal tibial fracture as above with overlying soft tissue edema. Electronically signed by: Shaun Alex M.D. 08/05/2023 10:12 PM Code Status & VTE Plan Code Status Full code VTE Prophylaxis Plan VTE Prophylaxis will be ordered: Yes PG Care Time/CCT Total # of Minutes Spent Total Time Spent with Patient: Total time spent is greater than 50% in coordination of care (as documented) at patient's floor/unit and/or counseling patient: Coding Level of Care Code 56352 INT INP/OBS CARE 3/75MIN Diagnoses Closed right tibial fracture S82.301A Encounter type: initial encounter Fracture morphology: unspecified fracture morphology Tibia location: distal Chronic anticoagulation Z79.01 Atrial flutter, unspecified type I48.92 Atrial flutter type: unspecified Acute kidney injury superimposed on CKD N17.9; N18.9 Chronic kidney disease, stage III (moderate) N18.30 Mitral regurgitation I34.0 Aortic valve insufficiency I35.1 LVH (left ventricular hypertrophy) I51.7 Gastroesophageal reflux disease without esophagitis K21.9 Esophagitis presence: without esophagitis (1) Closed right tibial fracture Encounter type: initial encounter Fracture morphology: unspecified fracture morphology Tibia location: distal Qualified Code(s): S82.301A - Unspecified fracture of lower end of right tibia, initial encounter for closed fracture (3) Atrial flutter Atrial flutter type: unspecified Qualified Code(s): I48.92 - Unspecified atrial flutter (9) GERD (gastroesophageal reflux disease) Esophagitis presence: without esophagitis Qualified Code(s): K21.9 - Gastro- esophageal reflux disease without esophagitis
[2023-08-05] MEDS ORDERED: NSS + 20MEQ KCL 20 MEQ/1,000 ML BAG IV SCH (23:15)
[2023-08-05] MEDS ORDERED: traZODone HCL 50 MG TAB PO PRN (23:42)
[2023-08-05 23:54] LABS: BUN Creatinine Ratio 12.9 (10-20); Calcium 9.3 mg/dl (8.6-10.3); Est GFR (African American) 42.5 ml/min; Est GFR (Non-African American) 36.7 ml/min; Potassium 4.1 mmol/L (3.5-5.1)
[2023-08-06] MEDS: METOPROLOL SUCC 25MG EXT REL TAB PO SCH ×2 (01:09→20:36)
[2023-08-06] MEDS: SODIUM CHLORIDE 0.9% 1,000 ML IV SCH ×2 (02:00→14:27)
[2023-08-06] MEDS: HYDROmorphone INJ 0.5 MG/0.5 ML SYR IV PRN ×2 (02:04→05:19)
[2023-08-06] MEDS: LEVOTHYROXINE SODIUM 75 MCG TABLET PO SCH (06:38)
[2023-08-06] MEDS: ONDANSETRON INJ 2 MG/ML 2 ML VIAL IV PRN ×2 (07:12→18:41)
[2023-08-06 08:14] LABS: Basophils # (auto) 0.03 K/uL (0.00-0.20); Basophils % (auto) 0.3 %; Eosinophils # (auto) 0.02 K/uL (0.00-0.50); Eosinophils % (auto) 0.2 %; Hematocrit (blood only) 37.6 % (37.0-47.0); Hemoglobin 12.2 g/dl (12.0-16.0); Immature Granulocytes # (auto) 0.03 K/uL (0.01-0.20); Immature Granulocytes % (auto) 0.3 %; Lymphocytes # (auto) 1.49 K/uL (1.20-3.40); Lymphocytes % (auto) 16.1 %; Mean Corpuscular Hgb Conc 32.4 g/dL (32.0-36.0); Mean Corpuscular Volume 98.7 fL (80.0-100.0); Mean Platelet Volume 8.6 fL (9.4-12.4); Monocytes # (auto) 0.91 K/uL (0.11-0.59); Monocytes % (auto) 9.8 %; Neutrophils # (auto) 6.79 K/uL (1.40-6.50); Neutrophils % (auto) 73.3 %; Platelet Count 244 K/uL (130-400); RDW Coefficient of Variation 13.2 % (11.5-14.5); RDW Standard Deviation 47.9 fL (36.4-46.3); Red Blood Count 3.81 M/uL (4.20-5.40); White Blood Count 9.27 K/ul (4.8-10.8)
--- NOTE | 2023-08-06 08:14 | Hospitalist Progress Note ---
Date of Service August 06, 2023 Assessment & Plan (1) Closed right tibial fracture: Plan: Closed R tibial fracture after being stepped on by her horse Consulted orthopedics - discussed with Dr. Islas Has been on apixaban for a-flutter, last dose - 08/05 around 9AM -apixaban will be 50% cleared by now, almost completely cleared by tomorrow AM at 48h Cardiac history per review of Dr. Lu's note 03/2023 paroxysmal atrial flutter, mild LVH, abnormal EKG (incomplete RBBB), and her mild valvular heart disease (mild AI, mild MR Echo summer 2022) -she has excellent exercise tolerance, doing barn/yard work, heavy lifting, can go up several flights of stairs without exertional dyspnea or chest pain -no history of heart failure or CAD and no s/sx of these -she is below average to average risk for complications and mortality based on NSQIP surgical risk -no contraindications to proceeding with surgery as planned 08/07 -discussed with Dr. Islas and ortho PA today Acetaminophen as needed for mild pain or fever Changed hydromorphone to morphine IV PRN mod-severe pain to see if this causes less nausea Zofran 4 mg IV every 6 hours as needed Famotidine 20 mg IV every 12 hours (2) Chronic anticoagulation: Plan: apixaban held, see above resume postop when safe per surgeon (3) Atrial flutter: Plan: History of atrial flutter with RVR/hypertension/aortic valve insufficiency/mitral regurgitation- continue metoprolol (4) Acute kidney injury superimposed on CKD: Plan: Cr 1.4 on presentation, baseline 1.18 -labs reviewed today Cr back to baseline 1.2 -IV NS at 80 mL/h (5) Chronic kidney disease, stage III (moderate): Plan: see above (6) Mitral regurgitation: (7) Aortic valve insufficiency: (8) LVH (left ventricular hypertrophy): (9) GERD (gastroesophageal reflux disease): Plan: continue IV pepcid while NPO Plan Hypothyroidism- Continue levothyroxine 75 mcg daily. DVT ppx - apixaban held for surgery, SCD on LLE Admission and Anticipated Discharge Date Admission Date: August 05, 2023 Subjective Tamy is not having pain in right leg right now when staying still now that it is splinted. Movement causes pain. Has had several episodes of emesis overnight, she thinks probably related to hydromorphone. No trouble breathing or chest pain Physical Exam 2 Physical Exam: PHYSICAL EXAMINATION Last 24h vital signs reviewed, see documentation in flowsheet General: comfortable appearing, no distress HEENT: Normocephalic, atraumatic, pupils round and equal, sclerae anicteric, no conjunctival injection, moist mucus membranes Lungs: Normal respiratory effort. Clear to auscultation bilaterally. No RRW Heart: Regular rate and rhythm, no murmurs. No JVD Abdomen: Soft, nondistended. Bowel sounds present. Extremities: Warm, dry, well-perfused. RLE in splint toes and forefoot with mild edema warm/wp sensation intact 2+ DP pulse. No LLE edema Neuro: Alert and oriented x 4, face symmetric, moves 4 extremities well Psych: Normal affect and behavior Results & Data Results & Data Vital Signs (Past 12 Hours) Vital Signs Temp Pulse Pulse Resp BP BP Pulse Ox 08/06/23 07:18 36.6 C 50 L 12 123/74 95 08/06/23 01:08 69 123/66 08/05/23 23:40 36.4 C L 78 20 163/80 H 94 08/05/23 23:02 62 16 99 08/05/23 23:02 146/73 H 08/05/23 23:01 66 17 08/05/23 22:46 63 14 95 08/05/23 22:46 131/70 08/05/23 22:30 70 14 08/05/23 22:00 128/67 08/05/23 22:00 69 25 H 96 08/05/23 21:30 136/77 08/05/23 21:30 62 21 95 08/05/23 21:00 135/75 08/05/23 21:00 69 23 94 08/05/23 20:30 61 18 94 08/05/23 20:30 134/58 L O2 Del Method 08/06/23 07:18 Room Air 08/06/23 01:08 08/05/23 23:40 Room Air 08/05/23 23:02 08/05/23 23:02 08/05/23 23:01 08/05/23 22:46 08/05/23 22:46 08/05/23 22:30 08/05/23 22:00 08/05/23 22:00 08/05/23 21:30 08/05/23 21:30 08/05/23 21:00 08/05/23 21:00 08/05/23 20:30 08/05/23 20:30 Laboratory Results 08/06/23 07:31 08/06/23 07:31 PG Care Time/CCT Total # of Minutes Spent Total Time Spent with Patient: Total time spent is greater than 50% in coordination of care (as documented) at patient's floor/unit and/or counseling patient: Coding Level of Care Code 50676 SUB INP/OBS CARE 235MIN Diagnoses Closed right tibial fracture S82.301A Encounter type: initial encounter Fracture morphology: unspecified fracture morphology Tibia location: distal Chronic anticoagulation Z79.01 Atrial flutter, unspecified type I48.92 Atrial flutter type: unspecified Acute kidney injury superimposed on CKD N17.9; N18.9 Chronic kidney disease, stage III (moderate) N18.30 Mitral regurgitation I34.0 Aortic valve insufficiency I35.1 LVH (left ventricular hypertrophy) I51.7 Gastroesophageal reflux disease without esophagitis K21.9 Esophagitis presence: without esophagitis (1) Closed right tibial fracture Encounter type: initial encounter Fracture morphology: unspecified fracture morphology Tibia location: distal Qualified Code(s): S82.301A - Unspecified fracture of lower end of right tibia, initial encounter for closed fracture (3) Atrial flutter Atrial flutter type: unspecified Qualified Code(s): I48.92 - Unspecified atrial flutter (9) GERD (gastroesophageal reflux disease) Esophagitis presence: without esophagitis Qualified Code(s): K21.9 - Gastro- esophageal reflux disease without esophagitis
[2023-08-06 08:25] LABS: Albumin Globulin Ratio 1.5 (0.9-2); Albumin Level 3.8 gm/dl (3.4-5.0); BUN Creatinine Ratio 16.7 (10-20); Bilirubin,Total 0.6 mg/dl (0.2-1.0); Calcium 8.8 mg/dl (8.6-10.3); Creatinine Clr Calc Pharmacy 44.5 ml/min; Est GFR (African American) 51.2 ml/min; Est GFR (Non-African American) 44.2 ml/min; Globulin 2.6 gm/dl (2.5-4.0); Magnesium 2.1 mg/dl (1.7-2.4); Potassium 4.5 mmol/L (3.5-5.1); Total Protein 6.4 gm/dl (6.0-8.3)
[2023-08-06] MEDS ORDERED: METOPROLOL SUCC 25MG EXT REL TAB PO SCH (09:00)
[2023-08-06] MEDS ORDERED: HYDROcodone/ACETAMINOPHEN 10/325 TAB PO PRN (09:21)
[2023-08-06] MEDS ORDERED: MoRPHine SULFATE 2 MG/ML CARP IV PRN (09:21)
[2023-08-06] MEDS ORDERED: MoRPHine SULFATE 4 MG/ML 1 ML CARP\\VIAL IV PRN (09:21)
[2023-08-06] MEDS: FAMOTIDINE 20 MG in SYRINGE 3 ML IV SCH ×2 (10:34→20:36)
--- NOTE | 2023-08-06 12:48 | Electrocardiogram Report ---
Test Reason : Blood Pressure : / mmHG Vent. Rate : 060 BPM Atrial Rate : 060 BPM P-R Int : 182 ms QRS Dur : 100 ms QT Int : 442 ms P-R-T Axes : 076 033 021 degrees QTc Int : 442 ms Normal sinus rhythm Incomplete right bundle branch block Borderline ECG When compared with ECG of 10-MAR-2023 06:41, Sinus rhythm has replaced Atrial flutter Criteria for Inferior infarct are no longer Present Confirmed by Mark Hancock ([id number]) on 08/06/2023 12:48:22 PM Referred By: REFERRED SELF Confirmed By:Mark Hancock
--- NOTE | 2023-08-06 16:28 | Orthopedic Consultation ---
Date of Consultation August 06, 2023 Assessment & Plan (1) Closed right tibial fracture: IMPRESSION: R Mid-distal 1/3 Tibia spiral fracture, closed, shortened and slightly medially displaced, initial visit. PLAN: Discussed options of conservative vs surgical intervention as well as the risks and benefits. She wished to proceed with surgery and signed the consent for ORIF right Tibia. Will plan to proceed with surgery tomorrow if remains medically stable as Eliquis should be cleared from her system, has been placed on the OR schedule. NPO with IV fluid after midnight. NWB RLE. RICE TEDS and foot pumps LLE Ancef & TXA on-call to OR Continue care per primary service. Present on Admission?: Yes History of Present Illness Reason for Consultation: R tibia fracture Requesting Physician: Marily Islas MD Attending Physician: Jenny Ervin MD History of Present Illness Yuridia is a pleasant 73 year old female, who had her [employer] horse step on her right leg. She was unable to bear weight. She was brought to the ED where x-rays were obtained. She is on Eliquis for A-fib. She was admitted to the hospitalist services with close monitoring. I was consulted for further evaluation and treatment of her right Tibia fracture. She was placed in an AO splint in the ED. She still feels like she can feel the bones shifting when she moves in bed. She took her last dose of Eliquis 08/05/23 in am. Denies any numbness or tingling. Allergies Allergy/AdvReac Type Severity Reaction Status Date / Time No Known Allergies Allergy Verified 08/05/23 21:52 Home Medications Medication Instructions Recorded Confirmed Type tramadol 100 mg tablet 100 mg PO Q6H PRN pain #90 tabs 02/27/23 08/05/23 Rx famotidine 20 mg tablet 40 mg PO DAILYBB 03/11/23 08/05/23 History levothyroxine 75 mcg tablet 75 mcg PO DAILY #90 tabs 05/29/23 08/05/23 Rx trazodone 50 mg tablet 50 mg PO HS PRN insomnia #90 tabs 05/29/23 08/05/23 Rx apixaban 5 mg tablet (Eliquis) 5 mg PO BID #120 tabs 06/02/23 08/05/23 Rx metoprolol succinate 25 mg 25 mg PO DAILY #30 tabs 07/03/23 08/05/23 Rx tablet,extended release 24 hr cholecalciferol (vitamin D3) 50 50 mcg PO DAILY 08/05/23 08/05/23 History mcg (2,000 unit) capsule (Vitamin D3) cyanocobalamin (vitamin B-12) 1,000 mcg PO DAILY 08/05/23 08/05/23 History 1,000 mcg tablet (Vitamin B-12) fexofenadine 180 mg tablet 180 mg PO DAILY 08/05/23 08/05/23 History multivitamin 1 tab PO DAILY 08/05/23 08/05/23 History Patient History Medical History Chronic anticoagulation History of traumatic subdural hematoma Chronic renal insufficiency Occlusion of left vertebral artery Migraines Insomnia ADD (attention deficit disorder) no longer on medications GERD (gastroesophageal reflux disease) Chronic back pain Surgical History H/O discectomy 2018 C7 with fusion [facility] Hx of appendectomy 1967 [place] H/O laminectomy 2016 H/O spinal fusion L5-S1 anterior approach done in [place] 1972 Family History Mother Breast cancer Diabetes Stroke Hypertension Grandfather (Maternal) Myocardial infarction Denies family history of Ovarian cancer Prostate cancer Colorectal cancer Social History Smoking Status: Former smoker Tobacco Type: Cigarettes Age Started Using Tobacco: 16; Age Quit Using Tobacco: 51; Second Hand Exposure: No; Do You Dip or Chew Tobacco: No; Hx Alcohol Use: Yes Alcohol type: wine Alcohol Intake Frequency: 4 or More x per/Week Hx Substance Use: No Preferred Language: Latvian Communication Ability: Effective Visual Impairment: Limited Hearing Ability: Normal Workforce Staffing Advisor Required: No Beliefs That Will Affect Care: None marital status: Current Living Situation: Spouse current occupational status: retired How many Children do You have: 0 Other Information That Helps Us Care for You: No Feels Safe at Home: Yes Safety Concerns: Feels Safe At This Time Childhood Exposure to Second-Hand Smoke: Yes Diet: vegan caffeine: Yes (coffee) during the past year weight has: remained stable Dental Care, Regularly: Yes Physical Activity Frequency: Daily Seatbelt Use: always Sunscreen Use: Yes Do you think of yourself as: lesbian/zapata/homosexual Sexual Activity: has been sexually active within the last 12 months Gender Identity: Female Assistive Devices: Glasses Assistive Devices Comment: reading glasses Review of Systems Review of Systems: All systems reviewed & are unremarkable except as noted in HPI & below Physical Exam Physical Exam: RLE: Splint in good repair. Able to wiggle all her toes up and down. BCR < 2 sec. Sensation to light touch intact distally. Calf soft and non-tender. Results & Data Vital Signs (Past 12 Hours) Vital Signs Temp Pulse Resp BP Pulse Ox O2 Del Method 08/06/23 15:17 36.7 C 78 12 127/68 95 Room Air 08/06/23 07:18 36.6 C 50 L 12 123/74 95 Room Air Laboratory Results Laboratory Results WBC 9.27 K/ul (4.8-10.8) 08/06/23 07:31 RBC 3.81 M/uL (4.20-5.40) L 08/06/23 07:31 Hgb 12.2 g/dl (12.0-16.0) 08/06/23 07:31 Hct 37.6 % (37.0-47.0) 08/06/23 07:31 MCV 98.7 fL (80.0-100.0) 08/06/23 07:31 MCH 32.0 pg (25.0-34.0) 08/06/23 07:31 MCHC 32.4 g/dL (32.0-36.0) 08/06/23 07:31 RDW Std Deviation 47.9 fL (36.4-46.3) H 08/06/23 07:31 RDW Coeff of Carla 13.2 % (11.5-14.5) 08/06/23 07:31 Plt Count 244 K/uL (130-400) 08/06/23 07:31 MPV 8.6 fL (9.4-12.4) L 08/06/23 07:31 Immature Gran % (Auto) 0.3 % 08/06/23 07:31 Neut % (Auto) 73.3 % 08/06/23 07:31 Lymph % (Auto) 16.1 % 08/06/23 07:31 [place] % (Auto) 9.8 % 08/06/23 07:31 Eos % (Auto) 0.2 % 08/06/23 07:31 Baso % (Auto) 0.3 % 08/06/23 07:31 Neut # (Auto) 6.79 K/uL (1.40-6.50) H 08/06/23 07:31 Lymph # (Auto) 1.49 K/uL (1.20-3.40) 08/06/23 07:31 [place] # (Auto) 0.91 K/uL (0.11-0.59) H 08/06/23 07:31 Eos # (Auto) 0.02 K/uL (0.00-0.50) 08/06/23 07:31 Baso # (Auto) 0.03 K/uL (0.00-0.20) 08/06/23 07:31 Immature Gran # (Auto) 0.03 K/uL (0.01-0.20) 08/06/23 07:31 PT 10.3 Seconds (9.0-12.0) 08/05/23 20:00 INR 0.9 (0.9-1.1) 08/05/23 20:00 APTT 28 Seconds (21-31) 08/05/23 20:00 PTT Ratio 1.0 08/05/23 20:00 Sodium 137 mmol/L (136-145) 08/06/23 07:31 Potassium 4.5 mmol/L (3.5-5.1) 08/06/23 07:31 Chloride 108 mmol/L (98-107) H 08/06/23 07:31 Carbon Dioxide 23 mmol/L (21-32) 08/06/23 07:31 Anion Gap 6 (3-11) 08/06/23 07:31 BUN 20 mg/dl (6-23) 08/06/23 07:31 Creatinine 1.20 mg/dl (0.6-1.2) 08/06/23 07:31 Est Cr Clr Drug Dosing 44.5 ml/min 08/06/23 07:31 Est GFR ( Amer) 51.2 ml/min 08/06/23 07:31 Est GFR (Non-Af Amer) 44.2 ml/min 08/06/23 07:31 BUN/Creatinine Ratio 16.7 (10-20) 08/06/23 07:31 Glucose 142 mg/dl (70-99(Fasting)) H 08/06/23 07:31 Calcium 8.8 mg/dl (8.6-10.3) 08/06/23 07:31 Magnesium 2.1 mg/dl (1.7-2.4) 08/06/23 07:31 Total Bilirubin 0.6 mg/dl (0.2-1.0) 08/06/23 07:31 AST 21 U/L (13-39) 08/06/23 07:31 ALT 18 U/L (7-52) 08/06/23 07:31 Alkaline Phosphatase 63 U/L (34-104) 08/06/23 07:31 Total Protein 6.4 gm/dl (6.0-8.3) 08/06/23 07:31 Albumin 3.8 gm/dl (3.4-5.0) 08/06/23 07:31 Globulin 2.6 gm/dl (2.5-4.0) 08/06/23 07:31 Albumin/Globulin Ratio 1.5 (0.9-2) 08/06/23 07:31 Impressions Tibia/Fibula X-Ray 08/05/23 20:48 RIGHT TIBIA AND FIBULA 2 VIEWS CLINICAL HISTORY: Trauma. Right leg injury. FINDINGS: AP and crosstable lateral views of the right tibia and fibula are obtained. No prior studies are available for comparison at the time of dictation. The skeletal structures are well-mineralized. There is a comminuted spiral fracture through the distal tibial shaft. Overlying soft tissue edema is observed. There is medial displacement of the distal fragment by up to 6 mm. No fibular fracture is seen. The knee and ankle joints are grossly maintained. IMPRESSION: Distal tibial fracture as above with overlying soft tissue edema. Electronically signed by: Shaun Alex M.D. 08/05/2023 10:12 PM (1) Closed right tibial fracture Encounter type: initial encounter Fracture morphology: unspecified fracture morphology Tibia location: distal Qualified Code(s): S82.301A - Unspecified fracture of lower end of right tibia, initial encounter for closed fracture
[2023-08-07] MEDS ORDERED: LACTATED RINGER'S 1,000 ML IV SCH (06:00)
[2023-08-07] MEDS ORDERED: TRANEXAMIC ACID / 0.7% NACL 1,000 MG/100 ML BAG IV SCH (06:00)
[2023-08-07] MEDS ORDERED: ceFAZolin 2000MG 2,000 MG/15 ML SYR IV SCH (06:00)
[2023-08-07] MEDS: LEVOTHYROXINE SODIUM 75 MCG TABLET PO SCH (06:17)
[2023-08-07 07:32] LABS: Basophils # (auto) 0.03 K/uL (0.00-0.20); Basophils % (auto) 0.4 %; Eosinophils # (auto) 0.27 K/uL (0.00-0.50); Eosinophils % (auto) 3.6 %; Hematocrit (blood only) 36.1 % (37.0-47.0); Hemoglobin 11.6 g/dl (12.0-16.0); Immature Granulocytes # (auto) 0.02 K/uL (0.01-0.20); Immature Granulocytes % (auto) 0.3 %; Lymphocytes # (auto) 1.64 K/uL (1.20-3.40); Lymphocytes % (auto) 21.6 %; Mean Corpuscular Hemoglobin 32.3 pg (25.0-34.0); Mean Corpuscular Hgb Conc 32.1 g/dL (32.0-36.0); Mean Corpuscular Volume 100.6 fL (80.0-100.0); Mean Platelet Volume 8.5 fL (9.4-12.4); Monocytes # (auto) 0.87 K/uL (0.11-0.59); Monocytes % (auto) 11.5 %; Neutrophils # (auto) 4.75 K/uL (1.40-6.50); Neutrophils % (auto) 62.6 %; Platelet Count 212 K/uL (130-400); RDW Coefficient of Variation 13.3 % (11.5-14.5); RDW Standard Deviation 49.7 fL (36.4-46.3); Red Blood Count 3.59 M/uL (4.20-5.40); White Blood Count 7.58 K/ul (4.8-10.8)
[2023-08-07 08:12] LABS: Albumin Globulin Ratio 1.4 (0.9-2); Albumin Level 3.4 gm/dl (3.4-5.0); BUN Creatinine Ratio 9.6 (10-20); Bilirubin,Total 0.6 mg/dl (0.2-1.0); Calcium 8.7 mg/dl (8.6-10.3); Creatinine Clr Calc Pharmacy 42.7 ml/min; Est GFR (African American) 48.7 ml/min; Globulin 2.5 gm/dl (2.5-4.0); Potassium 4.5 mmol/L (3.5-5.1); Total Protein 5.9 gm/dl (6.0-8.3)
[2023-08-07] MEDS: FAMOTIDINE 20 MG in SYRINGE 3 ML IV SCH ×2 (09:01→21:01)
--- NOTE | 2023-08-07 10:49 | Anesthesiology Consultation ---
Date of Service August 07, 2023 Assessment & Plan Chart Review Chart Review: Acceptable Risk for Surgery and Patient NOT seen in Pre Admission Testing Consults Requested none ASA ASA3 Proposed Anesthesia Anesthesia Type: General History Surgery Operation Date: 08/07/23 12:00 Proposed Procedures p Right IM Tibial Nail - Nirav Jovana Islas MD Height/Weight Height: 5 ft 8 in Weight: 78 kg Allergies Allergy/AdvReac Type Severity Reaction Status Date / Time No Known Allergies Allergy Verified 08/05/23 21:52 Medications Home Medications Medication Instructions Recorded Confirmed Last Taken tramadol 100 mg tablet 100 mg PO Q6H PRN pain #90 tabs 02/27/23 08/05/23 Unknown famotidine 20 mg tablet 40 mg PO DAILYBB 03/11/23 08/05/23 08/05/23 levothyroxine 75 mcg tablet 75 mcg PO DAILY #90 tabs 05/29/23 08/05/23 08/05/23 trazodone 50 mg tablet 50 mg PO HS PRN insomnia #90 tabs 05/29/23 08/05/23 Unknown apixaban 5 mg tablet (Eliquis) 5 mg PO BID #120 tabs 06/02/23 08/05/23 08/05/23 08:00 metoprolol succinate 25 mg 25 mg PO DAILY #30 tabs 07/03/23 08/05/23 08/05/23 tablet,extended release 24 hr cholecalciferol (vitamin D3) 50 50 mcg PO DAILY 08/05/23 08/05/23 08/05/23 mcg (2,000 unit) capsule (Vitamin D3) cyanocobalamin (vitamin B-12) 1,000 mcg PO DAILY 08/05/23 08/05/23 08/05/23 1,000 mcg tablet (Vitamin B-12) fexofenadine 180 mg tablet 180 mg PO DAILY 08/05/23 08/05/23 08/05/23 multivitamin 1 tab PO DAILY 08/05/23 08/05/23 08/05/23 Active Medications Generic Name Dose Route Start Last Admin Trade Name Freq PRN Reason Stop Dose Admin Hydrocodone Bitart/Acetaminophen 1 tab 08/06/23 09:21 08/06/23 16:45 Hydrocodone/Acetaminophen 10/325 Tab PO 08/20/23 09:20 1 tab Q4H PRN Administration Mild-Mod Pain (Scale 1-6) Famotidine 20 mg/ Syringe 5 mls @ 2.5 mls/min 08/06/23 09:00 08/07/23 09:01 IV 09/05/23 08:59 2.5 mls/min Q12 MARY ALICE Administration Levothyroxine Sodium 75 mcg 08/06/23 06:30 08/07/23 06:17 Levothyroxine Sodium 75 Mcg Tablet PO 09/05/23 06:29 75 mcg DAILYBB MARY ALICE Administration Metoprolol Succinate 25 mg 08/06/23 00:30 08/06/23 20:36 Metoprolol Succ 25mg Ext Rel Tab PO 09/05/23 00:29 25 mg QPM MARY ALICE Administration Ondansetron HCl 4 mg 08/05/23 22:55 08/06/23 18:41 Ondansetron Inj 2 Mg/Ml 2 Ml Vial IV 09/04/23 22:54 4 mg Q6H PRN Administration NAUSEA/VOMITING Past Medical History Medical History Chronic anticoagulation History of traumatic subdural hematoma Chronic renal insufficiency Occlusion of left vertebral artery Migraines Insomnia ADD (attention deficit disorder) no longer on medications GERD (gastroesophageal reflux disease) Chronic back pain IRBBB Mild MR,AR Anemia Hx/o A Fib/A Flutter Exercise / Class Metabolic Activity III < 4 Walking/Shop/Light housework Past Family History Family History Mother Breast cancer Diabetes Stroke Hypertension Grandfather (Maternal) Myocardial infarction Denies family history of Ovarian cancer Prostate cancer Colorectal cancer Past Surgical History Surgical History H/O discectomy 2019 C7 with fusion [facility] Hx of appendectomy 1967 [place] H/O laminectomy 2017 H/O spinal fusion L5-S1 anterior approach done in [place] 1972 Past Anesthesia History No Hx of Anesthesia Complications and No Family Hx of Anesthesia Complications History of PONV No Hx of PONV and No Hx of Motion Sickness Social History Smoking Status: Former smoker Do You Dip or Chew Tobacco: No Hx Alcohol Use: Yes Alcohol type: wine alcohol intake frequency: a few times a week Hx Substance Use: No Physical Exam Vital Signs Last Vital Signs Temp 36.9 C 08/07/23 07:15 Pulse 60 08/07/23 07:15 Resp 18 08/07/23 07:15 BP 136/73 08/07/23 07:15 Pulse Ox 95 08/07/23 07:15 O2 Del Method Room Air 08/07/23 07:15 Testing Laboratory Results 08/07/23 07:02 08/07/23 07:02 PT 10.3 Seconds (9.0-12.0) 08/05/23 20:00 INR 0.9 (0.9-1.1) 08/05/23 20:00 APTT 28 Seconds (21-31) 08/05/23 20:00 Blood Type O Positive 08/06/23 20:36 Antibody Screen NEGATIVE 08/06/23 20:36 Electrocardiogram Date: 08/05/23 Findings: + NSR @ (@ 60;IRBBB) Echocardiogram Date: 03/10/23 EF: 60% LV Function: normal RWMA: + none Other Findings: + LVH (mild) Valvular Disease: + AI (mild) and + MR (mild)
[2023-08-07] MEDS ORDERED: BUPIVACAINE 0.5 % 5 MG/1 ML MPF 30ML VIAL ONE (11:37)
[2023-08-07] MEDS ORDERED: LIDOCAINE 1%/EPINEPHRINE 1:100,000 20 ML VIAL ONE (11:38)
[2023-08-07] MEDS ORDERED: ATROPINE SULFATE 0.1 MG/ML 10ML SYR IV PRN (11:52)
[2023-08-07] MEDS ORDERED: ePHEDrine sulfate 50 MG/ML AMP IV PRN (11:52)
[2023-08-07] MEDS ORDERED: ONDANSETRON INJ 2 MG/ML 2 ML VIAL IV PRN (11:52)
[2023-08-07] MEDS ORDERED: fentaNYL citrate PF 100 MCG/2 ML VIAL IV PRN (11:52)
[2023-08-07] MEDS ORDERED: MoRPHine SULFATE 10 MG/ML CARP/VIAL IV PRN (11:52)
[2023-08-07] MEDS ORDERED: LABETALOL HCL IV 5 MG/ML 20ML IV PRN (11:52)
[2023-08-07] MEDS ORDERED: PROMETHAZINE HCL 12.5 MG in SODIUM CHLORIDE 0.9% 50 ML IV PRN (11:52)
[2023-08-07] MEDS ORDERED: NALOXONE HCL 0.4 MG/1 ML VIAL/CARP IV PRN (11:52)
[2023-08-07] MEDS ORDERED: FLUMAZENIL 0.1 MG/1 ML 10 ML VIAL IV PRN (11:52)
--- NOTE | 2023-08-07 11:59 | Orthopedic Progress Note ---
Date of Service August 07, 2023 Assessment & Plan (1) Closed right tibial fracture: Plan: IMPRESSION: R Mid-distal 1/3 Tibia spiral fracture, closed, shortened and slightly medially displaced, for planned OR today. PLAN: Patient is ready to proceed with surgery NPO with IV fluid since midnight NWB RLE. TEDS and foot pumps LLE Ancef & TXA on-call to OR Void mason liner to OR Patient had no further questions for Dr. Islas. RLE initialled by Dr. Islas. I, Dr. Islas, saw and examined the patient and agree with the above findings and plan of care I developed. Admission and Anticipated Discharge Date Admission Date: August 05, 2023 Subjective Pt seen bedside in pre op. She says she is doing well and comfortable. She has no further questions or concerns. Physical Exam Physical Exam: Resting comfortably in the bed. Splint in tact. RLE: BCR < 2 sec, sensation to light touch intact distally. Wiggling toes up and down. Results & Data Vital Signs (Past 12 Hours) Vital Signs Temp Pulse Resp BP Pulse Ox O2 Del Method 08/07/23 11:12 36.8 C 65 18 148/70 H 97 Room Air 08/07/23 07:15 36.9 C 60 18 136/73 95 Room Air Laboratory Results Laboratory Results WBC 7.58 K/ul (4.8-10.8) 08/07/23 07:02 RBC 3.59 M/uL (4.20-5.40) L 08/07/23 07:02 Hgb 11.6 g/dl (12.0-16.0) L 08/07/23 07:02 Hct 36.1 % (37.0-47.0) L 08/07/23 07:02 MCV 100.6 fL (80.0-100.0) H 08/07/23 07:02 MCH 32.3 pg (25.0-34.0) 08/07/23 07:02 MCHC 32.1 g/dL (32.0-36.0) 08/07/23 07:02 RDW Std Deviation 49.7 fL (36.4-46.3) H 08/07/23 07:02 RDW Coeff of Carla 13.3 % (11.5-14.5) 08/07/23 07:02 Plt Count 212 K/uL (130-400) 08/07/23 07:02 MPV 8.5 fL (9.4-12.4) L 08/07/23 07:02 Immature Gran % (Auto) 0.3 % 08/07/23 07:02 Neut % (Auto) 62.6 % 08/07/23 07:02 Lymph % (Auto) 21.6 % 08/07/23 07:02 [place] % (Auto) 11.5 % 08/07/23 07:02 Eos % (Auto) 3.6 % 08/07/23 07:02 Baso % (Auto) 0.4 % 08/07/23 07:02 Neut # (Auto) 4.75 K/uL (1.40-6.50) 08/07/23 07:02 Lymph # (Auto) 1.64 K/uL (1.20-3.40) 08/07/23 07:02 [place] # (Auto) 0.87 K/uL (0.11-0.59) H 08/07/23 07:02 Eos # (Auto) 0.27 K/uL (0.00-0.50) 08/07/23 07:02 Baso # (Auto) 0.03 K/uL (0.00-0.20) 08/07/23 07:02 Immature Gran # (Auto) 0.02 K/uL (0.01-0.20) 08/07/23 07:02 PT 10.3 Seconds (9.0-12.0) 08/05/23 20:00 INR 0.9 (0.9-1.1) 08/05/23 20:00 APTT 28 Seconds (21-31) 08/05/23 20:00 PTT Ratio 1.0 08/05/23 20:00 Sodium 140 mmol/L (136-145) 08/07/23 07:02 Potassium 4.5 mmol/L (3.5-5.1) 08/07/23 07:02 Chloride 111 mmol/L (98-107) H 08/07/23 07:02 Carbon Dioxide 25 mmol/L (21-32) 08/07/23 07:02 Anion Gap 4 (3-11) 08/07/23 07:02 BUN 12 mg/dl (6-23) 08/07/23 07:02 Creatinine 1.25 mg/dl (0.6-1.2) H 08/07/23 07:02 Est Cr Clr Drug Dosing 42.7 ml/min 08/07/23 07:02 Est GFR ( Amer) 48.7 ml/min 08/07/23 07:02 Est GFR (Non-Af Amer) 42.0 ml/min 08/07/23 07:02 BUN/Creatinine Ratio 9.6 (10-20) L 08/07/23 07:02 Glucose 100 mg/dl (70-99(Fasting)) H 08/07/23 07:02 Calcium 8.7 mg/dl (8.6-10.3) 08/07/23 07:02 Magnesium 2.0 mg/dl (1.7-2.4) 08/07/23 07:02 Total Bilirubin 0.6 mg/dl (0.2-1.0) 08/07/23 07:02 AST 16 U/L (13-39) 08/07/23 07:02 ALT 16 U/L (7-52) 08/07/23 07:02 Alkaline Phosphatase 55 U/L (34-104) 08/07/23 07:02 Total Protein 5.9 gm/dl (6.0-8.3) L 08/07/23 07:02 Albumin 3.4 gm/dl (3.4-5.0) 08/07/23 07:02 Globulin 2.5 gm/dl (2.5-4.0) 08/07/23 07:02 Albumin/Globulin Ratio 1.4 (0.9-2) 08/07/23 07:02 Blood Type O Positive 08/06/23 20:36 Antibody Screen NEGATIVE 08/06/23 20:36 Impressions Tibia/Fibula X-Ray 08/05/23 20:48 RIGHT TIBIA AND FIBULA 2 VIEWS CLINICAL HISTORY: Trauma. Right leg injury. FINDINGS: AP and crosstable lateral views of the right tibia and fibula are obtained. No prior studies are available for comparison at the time of dictation. The skeletal structures are well-mineralized. There is a comminuted spiral fracture through the distal tibial shaft. Overlying soft tissue edema is observed. There is medial displacement of the distal fragment by up to 6 mm. No fibular fracture is seen. The knee and ankle joints are grossly maintained. IMPRESSION: Distal tibial fracture as above with overlying soft tissue edema. Electronically signed by: Shaun Alex M.D. 08/05/2023 10:12 PM (1) Closed right tibial fracture Encounter type: initial encounter Fracture morphology: unspecified fracture morphology Tibia location: distal Qualified Code(s): S82.301A - Unspecified fracture of lower end of right tibia, initial encounter for closed fracture
[2023-08-07] MEDS ORDERED: fentaNYL citrate PF 100 MCG/2 ML VIAL ONE ×3 (12:33→13:43)
[2023-08-07] MEDS ORDERED: PROPOFOL IV EMULSION 10 MG/ML 20 ML VIAL IV ONE ×3 (12:33→15:04)
[2023-08-07] MEDS ORDERED: MIDAZOLAM HCL 1 MG/ML 2ML VIAL ONE (12:33)
[2023-08-07] MEDS ORDERED: SUCCINYLCHOLINE 100MG/5ML SYR IV ONE (13:25)
[2023-08-07] MEDS ORDERED: ONDANSETRON INJ 2 MG/ML 2 ML VIAL ONE ×2 (13:25→14:40)
[2023-08-07] MEDS ORDERED: ROCURONIUM BROMIDE 10 MG/ML 5 ML VIAL IV ONE (13:25)
[2023-08-07] MEDS ORDERED: DEXAMETHASONE SOD INJ 4 MG/ML VIAL ONE (13:25)
[2023-08-07] MEDS ORDERED: MoRPHine SULFATE 2 MG/ML CARP ONE (13:45)
[2023-08-07] MEDS ORDERED: GLYCOPYRROLATE 0.2 MG/ML VIAL ONE (14:38)
[2023-08-07] MEDS ORDERED: NEOSTIGMINE METHYLSULFATE 1 MG/ML 10ML VIAL ONE (14:38)
--- NOTE | 2023-08-07 14:54 | Operative Report ---
Post Operative Report Pre & Post Diagnosis Operation Date: 08/07/23 12:00 Pre-Op Diagnosis: Right tibial fracture Post-Op Diagnosis: Right tibial fracture with butterfly fragments I identified the patient and participated in the time-out.: Yes Procedure Operation Date: 08/07/23 12:00 Actual Procedures p Right tibia open reduction, internal fixation with IM Nail (Right) - Nirav Islas MD Surgeon Nirav Islas MD Real Estate Transaction Coordinator Jovana Kat MD & Leif Gill PA-C Estimated Blood Loss 45 Findings Consistent with Post-Op Diagnosis Fluids 1000 cc Specimens n/a Anesthesia Type General Complications none Indications The patient is a 73 year old female who sustained a right tibia fracture after being stepped on by a horse. The patients treatment options of conservative versus surgical intervention were discussed. I recommended surgery. The p atient understands the risks of surgery, which include but are not limited to: bleeding, infection, re-operation, damage to nerves and arteries, continued pain, failure of the hardware, mal-union, non-union, DVT, and . The patient understands all of these instructions and explanations, all of their questions have been satisfactorily addressed. The patient has elected to proceed with surgery and the informed consent was signed. Description of Procedure IMPLANTS: 1. Synthes 10 mm x 330 mm Tibial Nail. 2. 5 x (42 & 30 mm) proximal Locking screw. 3. 5 x (30 & 40 mm) distal locking screws. 4. Standard 5 mm titanium end cap. PROCEDURE: The patient was taken to the Operating Room and placed in the supine position on the radiolucent Ajith table after general anesthesia was administered. A multidisciplinary time-out was performed identifying the patient and my initials on the right lower limb as the correct and operative limb. Prior to the incision being made, 2 grams of intravenous Ancef were given as well as 1g of TXA. The right lower extremity was prepped in the standard fashion. The planned anterior knee incision was marked. This incision and the stab incisions for the locking screws were injected with a 50:50 mixture of 1% Lidocaine with epi and 0.5% Bupivacaine plain for a total of 15 cc. The planned anterior incision was made and carried down through the peritenon. The peritenon was split exposing the patellar tendon and the tendon was split to gain access to the starting point. Fluoroscopy was used to find the starting point. A starting guide wire was placed and the starting reamer was used to create the entry hole. While reducing the fracture with manual traction and medial pressure along the distal fragment, the long guide wire was then placed across the fracture into the distal fragment down to the distal tibial physeal scar centrally in both the AP and lateral projections. The tibial canal was then sequentially reamed from an 8.5 up to a 10.5 mm reamer. A size 10 mm implant was selected. The implant was then inserted without difficulty. A second incision was made for placement of the proximal locking screws, which were placed using the aiming guide. An end cap was then placed in the standard fashion. The distal locking screws, 2 medial to lateral direction, were placed with perfect [place] technique. Final x-rays were obtained showing near anatomic alignment of the tibial shaft fracture. The wounds were copiously irrigated. The patellar tendon was closed with 0 Vicryl. The peritenon was closed with 2-0 Vicryl. The subcutaneous tissue was closed with 3-0 Vicryl. The anterior and proximal medial incisions were closed with Zipline and shield. The stab incisions were closed with esteban. The stab incisions were covered with Xeroform. All the incisions were covered with 4x4s, ABD, sterile cast padding, and an AO splint was placed. The alignment of the lower leg was the same as the non-operative side. The patient was transfer to the hospital bed and taken to the PACU in stable condition. The sponge and needle counts were correct. Post-op Instructions:The patient was re-admitted to the hospitalist service. The patient will be NWB, after switched to cam boot will be TTWB. The patient will be seen by PT/OT. DVT prophylaxis will be with mechanical devices and restart Eliquis tonight I attest to the content of the Intraoperative Record and any orders documented therein. Any exceptions are noted below.
--- NOTE | 2023-08-07 14:54 | Post Operative Brief Note ---
Immediate Post Op Note v1 Date of Surgery August 07, 2023 Pre & Post Diagnosis Operation Date: 08/07/23 12:00 Pre-Op Diagnosis: Right tibial fracture Post-Op Diagnosis: Right tibial fracture with butterfly fragments I identified the patient and participated in the time-out.: Yes Procedure Operation Date: 08/07/23 12:00 Actual Procedures p Right tibia open reduction, internal fixation (Right) - Nirav Islas MD Surgeon Nirav Islas MD Beef Selector A MD Shey & M JOVANI Gill Estimated Blood Loss 45 Findings Consistent with Post-Op Diagnosis Fluids 1000 cc Anesthesia Type General Complications none
--- NOTE | 2023-08-07 15:26 | Operative Report ---
Post Operative Report Pre & Post Diagnosis Operation Date: 08/07/23 12:00 Pre-Op Diagnosis: Right tibial fracture Post-Op Diagnosis: Right tibial fracture with butterfly fragments I identified the patient and participated in the time-out.: Yes Procedure Operation Date: 08/07/23 12:00 Actual Procedures p Right tibia open reduction, internal fixation, intramedullary nail(Right) - Nirav Islas MD Surgeon Dr Nirav Islas Utility Service Worker Jovana Kat MD & M JOVANI Gill Estimated Blood Loss 45 Findings Consistent with Post-Op Diagnosis Specimens none Description of Procedure Pt was taken to operating room and properly positioned for procedure. Refer to anesthesia's note for anesthesia used. Pt was given pre-op antibiotics. Prepped and draped in sterile fashion. I was present during the entire case and assisted with positioning, instrumentation, closure and dressings. Please see surgeon's op report for further detail. Pt was awake and transferred to PACU in stable condition I attest to the content of the Intraoperative Record and any orders documented therein. Any exceptions are noted below.
--- NOTE | 2023-08-07 15:28 | Operative Report ---
Post Operative Report Pre & Post Diagnosis Operation Date: 08/07/23 12:00 Pre-Op Diagnosis: Right tibial fracture Post-Op Diagnosis: Right tibial fracture with butterfly fragments I identified the patient and participated in the time-out.: Yes Procedure Operation Date: 08/07/23 12:00 Actual Procedures p Right tibia open reduction, internal fixation, intramedullary nail(Right) - Nirav Islas MD Surgeon Nirav Islas MD Customs Import Specialist A MD Shey & M JOVANI Gill Estimated Blood Loss 45 Findings Consistent with Post-Op Diagnosis Same as postoperative diagnosis. Specimens None Description of Procedure Please see detailed operative note. I attest to the content of the Intraoperative Record and any orders documented therein. Any exceptions are noted below.
--- NOTE | 2023-08-07 15:58 | Fluoroscopy Report ---
INTRAOPERATIVE RADIOGRAPHS CLINICAL HISTORY: Open reduction and internal fixation of the right tibia. Fluoro time: 109 seconds Ka,r: 5.67 mGy FINDINGS: 6 spot fluoroscopic views of the right tibia are presented. An intertrochanteric nail has b een placed transfixing a spiral fracture of the distal tibial shaft. Near anatomic alignment is jermaine red. 2 cortical lag screws transfix both the proximal and distal ends of the intramedullary nail. The orthopedic hardware appears intact. IMPRESSION: Intraoperative images from open reduction and internal fixation of a right tibial fractur e. Electronically signed by: Shaun Alex M.D. 08/07/2023 3:56 PM
--- NOTE | 2023-08-07 16:02 | Anesthesiology Progress Note ---
Date of Service August 07, 2023 Anesthesia Post Procedure Vital Signs Vital Signs: Temp Pulse Pulse Resp BP BP Pulse Ox 08/07/23 15:30 72 20 164/79 H 95 08/07/23 15:24 97.0 F L 73 16 152/89 H 95 08/07/23 11:12 98.2 F 65 18 148/70 H 97 08/07/23 07:15 98.4 F 60 18 136/73 95 08/06/23 20:19 98.1 F 73 16 148/71 H 95 O2 Del Method O2 Flow Rate 08/07/23 15:30 Nasal Cannula 2 08/07/23 15:24 Oxymask 6 08/07/23 11:12 Room Air 08/07/23 07:15 Room Air 08/06/23 20:19 Room Air Pain Intensity Right Lower Leg: Pain Intensity: 3 Transfer of Care Handoff Completed per policy Notes Mental Status: alert / awake / arousable and participated in evaluation Patient Amnestic to Procedure: Yes Nausea / Vomiting: adequately controlled Pain: adequately controlled Airway Patency, RR, SpO2: stable & adequate BP & HR: stable & adequate Hydration State: stable & adequate Anesthetic Complications: no major complications apparent and Pt Satisfied with anesthetic care
[2023-08-07] MEDS ORDERED: ACETAMINOPHEN 1,000 MG/100 ML VIAL IV STA (16:19)
--- NOTE | 2023-08-07 16:44 | Hospitalist Progress Note ---
Date of Service August 07, 2023 Assessment & Plan (1) Closed right tibial fracture: Plan: Closed R tibial fracture after being stepped on by her horse Consulted orthopedics - discussed with Dr. Islas Has been on apixaban for a-flutter, last dose - 08/05 around 9AM, held Cardiac history per review of Dr. Lu's note 03/2023 paroxysmal atrial flutter, mild LVH, abnormal EKG (incomplete RBBB), and her mild valvular heart disease (mild AI, mild MR Echo summer 2022) -she has excellent exercise tolerance, doing barn/yard work, heavy lifting, can go up several flights of stairs without exertional dyspnea or chest pain -no history of heart failure or CAD and no s/sx of these -she is below average to average risk for complications and mortality based on NSQIP surgical risk -no contraindications to proceeding with surgery as planned 08/07 -discussed with Dr. Islas today - surgery went well, anticipates NWB RLE minimum 4 weeks reassess with xrays at that time, PT, possible discharge soon, resume apixaban tonight Acetaminophen as needed for mild pain or fever Changed hydromorphone to morphine IV PRN mod-severe pain to see if this causes less nausea [place] prn mild-mod pain Zofran 4 mg IV every 6 hours as needed (2) Chronic anticoagulation: Plan: apixaban held, see above resume tonight per surgeon (3) Atrial flutter: Plan: History of atrial flutter with RVR/hypertension/aortic valve insufficiency/mitral regurgitation- continue metoprolol (4) Acute kidney injury superimposed on CKD: Plan: Cr 1.4 on presentation, baseline 1.18 -labs reviewed today Cr stable 1.25 (5) Chronic kidney disease, stage III (moderate): Plan: see above (6) Mitral regurgitation: (7) Aortic valve insufficiency: (8) LVH (left ventricular hypertrophy): (9) GERD (gastroesophageal reflux disease): Plan: continue IV pepcid while NPO Plan Hypothyroidism- Continue levothyroxine 75 mcg daily. DVT ppx - apixaban Admission and Anticipated Discharge Date Admission Date: August 05, 2023 Subjective Doing well, no significant RLE pain while immobile, pain with moving around, no nausea when not taking pain meds, did have nausea after norco last night, notes increased edema forefoot/toes on R Physical Exam 2 Physical Exam: PHYSICAL EXAMINATION Last 24h vital signs reviewed, see documentation in flowsheet General: comfortable appearing, no distress HEENT: Normocephalic, atraumatic, pupils round and equal, sclerae anicteric, no conjunctival injection, moist mucus membranes Lungs: Normal respiratory effort Heart: deferred Abdomen: nondistended. Extremities: Warm, dry, well-perfused. RLE in splint toes and forefoot with mild edema slightly increased warm/wp sensation intact 2+ DP pulse. No LLE edema Neuro: Alert and oriented x 4, face symmetric, moves 4 extremities well Psych: Normal affect and behavior Results & Data Results & Data Vital Signs (Past 12 Hours) Vital Signs Temp Pulse Pulse Resp BP BP Pulse Ox 08/07/23 16:30 63 20 145/83 H 94 08/07/23 16:20 36.4 C L 68 18 161/78 H 94 08/07/23 16:10 63 20 149/68 H 94 08/07/23 16:00 59 L 18 162/73 H 94 08/07/23 15:50 57 L 20 147/86 H 94 08/07/23 15:40 68 18 168/62 H 96 08/07/23 15:30 72 20 164/79 H 95 08/07/23 15:24 36.1 C L 73 16 152/89 H 95 08/07/23 11:12 36.8 C 65 18 148/70 H 97 08/07/23 07:15 36.9 C 60 18 136/73 95 O2 Del Method O2 Flow Rate 08/07/23 16:30 Nasal Cannula 2 08/07/23 16:20 Nasal Cannula 2 08/07/23 16:10 Nasal Cannula 2 08/07/23 16:00 Nasal Cannula 2 08/07/23 15:50 Nasal Cannula 2 08/07/23 15:40 Nasal Cannula 2 08/07/23 15:30 Nasal Cannula 2 08/07/23 15:24 Oxymask 6 08/07/23 11:12 Room Air 08/07/23 07:15 Room Air Laboratory Results 08/07/23 07:02 08/07/23 07:02 PG Care Time/CCT Total # of Minutes Spent Total Time Spent with Patient: Total time spent is greater than 50% in coordination of care (as documented) at patient's floor/unit and/or counseling patient: Coding Level of Care Code 19569 SUB INP/OBS CARE MIN Diagnoses Closed right tibial fracture S82.301A Encounter type: initial encounter Fracture morphology: unspecified fracture morphology Tibia location: distal Chronic anticoagulation Z79.01 Atrial flutter, unspecified type I48.92 Atrial flutter type: unspecified Acute kidney injury superimposed on CKD N17.9; N18.9 Chronic kidney disease, stage III (moderate) N18.30 Mitral regurgitation I34.0 Aortic valve insufficiency I35.1 LVH (left ventricular hypertrophy) I51.7 Gastroesophageal reflux disease without esophagitis K21.9 Esophagitis presence: without esophagitis (1) Closed right tibial fracture Encounter type: initial encounter Fracture morphology: unspecified fracture morphology Tibia location: distal Qualified Code(s): S82.301A - Unspecified fracture of lower end of right tibia, initial encounter for closed fracture (3) Atrial flutter Atrial flutter type: unspecified Qualified Code(s): I48.92 - Unspecified atrial flutter (9) GERD (gastroesophageal reflux disease) Esophagitis presence: without esophagitis Qualified Code(s): K21.9 - Gastro- esophageal reflux disease without esophagitis
[2023-08-07] MEDS ORDERED: bisacodyL 10 MG SUPP PR PRN (17:06)
[2023-08-07] MEDS ORDERED: METOCLOPRAMIDE HCL INJ 5 MG/ML 2 ML VIAL IV PRN (17:06)
[2023-08-07] MEDS ORDERED: MAGNESIUM HYDROXIDE SUSP 30 ML UDC PO PRN (17:06)
[2023-08-07] MEDS: SODIUM CHLORIDE 0.9% 1,000 ML IV SCH (18:26)
[2023-08-07] MEDS: FERROUS GLUCONATE 324 MG TAB PO SCH (18:27)
[2023-08-07] MEDS: ASCORBIC ACID 500 MG TAB PO SCH (18:28)
[2023-08-07] MEDS ORDERED: SENNA 8.6 MG TAB PO SCH (21:00)
[2023-08-07] MEDS: DOCUSATE SODIUM 100 MG CAP PO SCH (21:01)
[2023-08-07] MEDS: APIXABAN 5 MG TABLET PO SCH (21:02)
[2023-08-07] MEDS: METOPROLOL SUCC 25MG EXT REL TAB PO SCH (21:03)
[2023-08-07] MEDS ORDERED: COUGH DROP (SUGAR FREE) LOZ 24 LOZ/1 BOX BUCCAL ONE (22:33)
[2023-08-08] MEDS: SODIUM CHLORIDE 0.9% 1,000 ML IV SCH (03:09)
[2023-08-08] MEDS: LEVOTHYROXINE SODIUM 75 MCG TABLET PO SCH (06:12)
[2023-08-08] MEDS ORDERED: FAMOTIDINE 40 MG TABLET PO SCH (06:30)
[2023-08-08 07:04] LABS: Basophils # (auto) 0.04 K/uL (0.00-0.20); Basophils % (auto) 0.4 %; Eosinophils # (auto) 0.02 K/uL (0.00-0.50); Eosinophils % (auto) 0.2 %; Hematocrit (blood only) 33.6 % (37.0-47.0); Hemoglobin 11.1 g/dl (12.0-16.0); Immature Granulocytes # (auto) 0.05 K/uL (0.01-0.20); Immature Granulocytes % (auto) 0.5 %; Lymphocytes # (auto) 1.96 K/uL (1.20-3.40); Mean Corpuscular Hemoglobin 32.2 pg (25.0-34.0); Mean Corpuscular Volume 97.4 fL (80.0-100.0); Mean Platelet Volume 8.6 fL (9.4-12.4); Monocytes # (auto) 1.19 K/uL (0.11-0.59); Monocytes % (auto) 10.9 %; Neutrophils # (auto) 7.62 K/uL (1.40-6.50); Platelet Count 223 K/uL (130-400); RDW Coefficient of Variation 13.2 % (11.5-14.5); RDW Standard Deviation 46.9 fL (36.4-46.3); Red Blood Count 3.45 M/uL (4.20-5.40); White Blood Count 10.88 K/ul (4.8-10.8)
[2023-08-08 07:25] LABS: Albumin Globulin Ratio 1.4 (0.9-2); Albumin Level 3.4 gm/dl (3.4-5.0); BUN Creatinine Ratio 10.1 (10-20); Bilirubin,Total 0.5 mg/dl (0.2-1.0); Calcium 8.8 mg/dl (8.6-10.3); Creatinine Clr Calc Pharmacy 41.4 ml/min; Est GFR (African American) 46.9 ml/min; Est GFR (Non-African American) 40.5 ml/min; Globulin 2.5 gm/dl (2.5-4.0); Magnesium 1.9 mg/dl (1.7-2.4); Potassium 4.5 mmol/L (3.5-5.1); Total Protein 5.9 gm/dl (6.0-8.3)
[2023-08-08] MEDS: ACETAMINOPHEN 325 MG TAB PO PRN ×2 (08:25→15:32)
[2023-08-08] MEDS: ASCORBIC ACID 500 MG TAB PO SCH (08:26)
[2023-08-08] MEDS: DOCUSATE SODIUM 100 MG CAP PO SCH (08:26)
[2023-08-08] MEDS: APIXABAN 5 MG TABLET PO SCH (08:27)
[2023-08-08] MEDS: FERROUS GLUCONATE 324 MG TAB PO SCH (08:27)
[2023-08-08] MEDS ORDERED: MULTIVITAMIN TAB PO SCH (09:00)
[2023-08-08] MEDS ORDERED: FEXOFENADINE HCL 180 MG TAB PO SCH (09:00)
[2023-08-08] MEDS ORDERED: CHOLECALCIFEROL 1,000 UNITS 25 MCG TAB PO SCH (09:00)
[2023-08-08] MEDS ORDERED: CYANOCOBALAMIN (B-12) 500 MCG TABLET PO SCH (09:00)
--- NOTE | 2023-08-08 09:42 | Orthopedic Progress Note ---
Date of Service August 08, 2023 Assessment & Plan (1) Closed right tibial fracture: Plan: IMPRESSION: POD #1 s/p ORIF with IM lulu, R Mid-distal 1/3 Tibia spiral fracture, doing very well. PLAN: reassured about splint, due to water to activate splint. Resume diet NWB RLE. TEDS and foot pumps LLE Continue pain control with Tylenol, could send home with Tramadol for break through pain. PT/OT DVT Prophylaxis: JAIRO LLE 19-20 hrs per day, Foot pumps while in hospital, Eliquis D/C planning Continue care per Hospitalist service. Ok to D/C from ortho stand point. Follow-up in Dr. Islas's office in 1 week. Admission and Anticipated Discharge Date Admission Date: August 05, 2023 Subjective Overall doing well. Slight discomfort anterior knee. Controlled with Tylenol. Physical Exam Physical Exam: Resting comfortably in the bed. Splint clean, intact, and SHANE slightly damp posterior due to water to active fiberglass. RLE: BCR < 2 sec, sensation to light touch intact distally. Wiggling toes up and down. Results & Data Vital Signs (Past 12 Hours) Vital Signs Temp Pulse Resp BP Pulse Ox O2 Del Method 08/08/23 07:04 36.8 C 61 18 151/66 H 95 Room Air 08/08/23 03:30 37.0 C 76 16 145/75 H 92 Room Air 08/07/23 22:37 36.6 C 85 18 136/71 92 Room Air Laboratory Results Laboratory Results WBC 10.88 K/ul (4.8-10.8) H 08/08/23 06:42 RBC 3.45 M/uL (4.20-5.40) L 08/08/23 06:42 Hgb 11.1 g/dl (12.0-16.0) L 08/08/23 06:42 Hct 33.6 % (37.0-47.0) L 08/08/23 06:42 MCV 97.4 fL (80.0-100.0) 08/08/23 06:42 MCH 32.2 pg (25.0-34.0) 08/08/23 06:42 MCHC 33.0 g/dL (32.0-36.0) 08/08/23 06:42 RDW Std Deviation 46.9 fL (36.4-46.3) H 08/08/23 06:42 RDW Coeff of Carla 13.2 % (11.5-14.5) 08/08/23 06:42 Plt Count 223 K/uL (130-400) 08/08/23 06:42 MPV 8.6 fL (9.4-12.4) L 08/08/23 06:42 Immature Gran % (Auto) 0.5 % 08/08/23 06:42 Neut % (Auto) 70.0 % 08/08/23 06:42 Lymph % (Auto) 18.0 % 08/08/23 06:42 [place] % (Auto) 10.9 % 08/08/23 06:42 Eos % (Auto) 0.2 % 08/08/23 06:42 Baso % (Auto) 0.4 % 08/08/23 06:42 Neut # (Auto) 7.62 K/uL (1.40-6.50) H 08/08/23 06:42 Lymph # (Auto) 1.96 K/uL (1.20-3.40) 08/08/23 06:42 [place] # (Auto) 1.19 K/uL (0.11-0.59) H 08/08/23 06:42 Eos # (Auto) 0.02 K/uL (0.00-0.50) 08/08/23 06:42 Baso # (Auto) 0.04 K/uL (0.00-0.20) 08/08/23 06:42 Immature Gran # (Auto) 0.05 K/uL (0.01-0.20) 08/08/23 06:42 PT 10.3 Seconds (9.0-12.0) 08/05/23 20:00 INR 0.9 (0.9-1.1) 08/05/23 20:00 APTT 28 Seconds (21-31) 08/05/23 20:00 PTT Ratio 1.0 08/05/23 20:00 Sodium 139 mmol/L (136-145) 08/08/23 06:42 Potassium 4.5 mmol/L (3.5-5.1) 08/08/23 06:42 Chloride 108 mmol/L (98-107) H 08/08/23 06:42 Carbon Dioxide 26 mmol/L (21-32) 08/08/23 06:42 Anion Gap 5 (3-11) 08/08/23 06:42 BUN 13 mg/dl (6-23) 08/08/23 06:42 Creatinine 1.29 mg/dl (0.6-1.2) H 08/08/23 06:42 Est Cr Clr Drug Dosing 41.4 ml/min 08/08/23 06:42 Est GFR ( Amer) 46.9 ml/min 08/08/23 06:42 Est GFR (Non-Af Amer) 40.5 ml/min 08/08/23 06:42 BUN/Creatinine Ratio 10.1 (10-20) 08/08/23 06:42 Glucose 103 mg/dl (70-99(Fasting)) H 08/08/23 06:42 Calcium 8.8 mg/dl (8.6-10.3) 08/08/23 06:42 Magnesium 1.9 mg/dl (1.7-2.4) 08/08/23 06:42 Total Bilirubin 0.5 mg/dl (0.2-1.0) 08/08/23 06:42 AST 18 U/L (13-39) 08/08/23 06:42 ALT 14 U/L (7-52) 08/08/23 06:42 Alkaline Phosphatase 54 U/L (34-104) 08/08/23 06:42 Total Protein 5.9 gm/dl (6.0-8.3) L 08/08/23 06:42 Albumin 3.4 gm/dl (3.4-5.0) 08/08/23 06:42 Globulin 2.5 gm/dl (2.5-4.0) 08/08/23 06:42 Albumin/Globulin Ratio 1.4 (0.9-2) 08/08/23 06:42 Blood Type O Positive 08/06/23 20:36 Antibody Screen NEGATIVE 08/06/23 20:36 Impressions Tibia/Fibula X-Ray 08/07/23 12:00 INTRAOPERATIVE RADIOGRAPHS CLINICAL HISTORY: Open reduction and internal fixation of the right tibia. Fluoro time: 109 seconds Ka,r: 5.67 mGy FINDINGS: 6 spot fluoroscopic views of the right tibia are presented. An tibial nail has been placed transfixing a spiral fracture of the distal tibial shaft. Near anatomic alignment is restored. 2 cortical screws transfix both the proximal and distal ends of the intramedullary nail. The orthopedic hardware appears intact. IMPRESSION: Intraoperative images from open reduction and internal fixation of a right tibial fracture. Electronically signed by: Shaun Alex M.D. 08/07/2023 3:56 PM (1) Closed right tibial fracture Encounter type: initial encounter Fracture morphology: unspecified fracture morphology Tibia location: distal Qualified Code(s): S82.301A - Unspecified fracture of lower end of right tibia, initial encounter for closed fracture
[2023-08-08 11:23] LABS: Appearance Urine Clear (Clear); Bilirubin Urine Negative (Negative); Blood Urine Negative (Negative); Color Urine Yellow; Glucose Urine UA Negative (Negative); Ketones Urine Negative (Negative); Leukocyte Esterase Urine Negative (Negative); Nitrite Urine Negative (Negative); Protein Urine Negative (Negative); Specific Gravity Urine 1.007 (1.000-1.030); Urobilinogen Urine Negative (Negative); pH Urine 6.5 (4.5-7.5)
[2023-08-08] MEDS: FAMOTIDINE 20 MG TAB PO SCH (12:57)
[2023-08-08] MEDS: FAMOTIDINE 20 MG in SYRINGE 3 ML IV SCH (12:59)
--- NOTE | 2023-08-08 17:27 | Discharge Summary ---
Discharge Summary Date of Service August 08, 2023 Notes For Next Care Provider follow up Hg/Hct in 4-6 weeks for resolution of anemia, iron panel if indicated Medication Changes From Visit none Admission HPI Per Admitting Provider The patient is a 73-year-old female with a past medical history including LVH, CKD stage III, mitral regurgitation, aortic valve insufficiency, history of traumatic subdural hematoma, occlusion of left vertebral artery, atrial flutter, GERD, chronic back pain and hypothyroidism. She presents to the emergency department after accidentally being stepped on by her horse while taking care of it earlier this evening prior to arrival. After the injury, she was unable to bear weight due to severe pain, and was brought to the emergency department via ambulance. X-rays in the emergency department revealed a closed right tibial shaft fracture, was placed in an immobilizer, and she was referred for evaluation for admission Principal Dx & Hospital Course #1 = Principal Diagnosis (1) Closed right tibial fracture: Closed R tibial fracture after falling next to her horse and having her leg stepped on Consulted orthopedics - Dr. Islas Had been on apixaban for a-flutter, held for 48h prior to surgery Underwent R tibia ORIF and IM nail 08/07 which was uneventful. Tolerated procedure well and was able to mobilize safely with PT and walker, will remain NWB RLE until cleared by Dr. Islas. Postop pain control - she took only acetaminophen. Rx provided for tramadol, cyclobenzaprine for some ongoing muscle spasm. Follow up with Dr. Islas in 1 week. Home health PT arranged (2) Chronic anticoagulation: apixaban held preop, see above, resumed evening after surgery (3) Atrial flutter: History of atrial flutter with RVR/hypertension/aortic valve insufficiency/mitral regurgitation- continue metoprolol Cardiac history per review of Dr. Lu's note 03/2023 paroxysmal atrial flutter, mild LVH, abnormal EKG (incomplete RBBB), and her mild valvular heart disease (mild AI, mild MR Echo summer 2022) -she has excellent exercise tolerance, doing barn/yard work, heavy lifting, can go up several flights of stairs without exertional dyspnea or chest pain -no history of heart failure or CAD and no s/sx of these (4) Acute kidney injury superimposed on CKD: Cr 1.4 on presentation, baseline 1.18 -labs reviewed today Cr stable 1.25, 1.29 (5) Acute blood loss anemia: Hematocrit dropped from 42.5 on presentation to 33.6 postop. Blood loss from tibia fracture and orthopedic surgery -iron supplement -follow up H/H in 4-6 weeks iron panel if needed for persistent anemia (6) Chronic kidney disease, stage III (moderate): see above (7) Mitral regurgitation: (8) Aortic valve insufficiency: (9) LVH (left ventricular hypertrophy): (10) GERD (gastroesophageal reflux disease): Plan Hypothyroidism- Continue levothyroxine 75 mcg daily. DVT ppx - apixaban resumed Discharge Exam PHYSICAL EXAMINATION Last 24h vital signs reviewed, see documentation in flowsheet General: comfortable appearing, no distress HEENT: Normocephalic, atraumatic, pupils round and equal, sclerae anicteric, no conjunctival injection, moist mucus membranes Lungs: Normal respiratory effort Heart: deferred Abdomen: nondistended. Extremities: Warm, dry, well-perfused. RLE in splint toes and forefoot with mild edema warm/wp Neuro: Alert and oriented x 4, face symmetric, moves 4 extremities well Psych: Normal affect and behavior Updated Medication List Medication Instructions Recorded Confirmed Type famotidine 20 mg tablet 40 mg PO DAILYBB 03/11/23 08/05/23 History levothyroxine 75 mcg tablet 75 mcg PO DAILY #90 tabs 05/29/23 08/05/23 Rx trazodone 50 mg tablet 50 mg PO HS PRN insomnia #90 tabs 05/29/23 08/05/23 Rx apixaban 5 mg tablet (Eliquis) 5 mg PO BID #120 tabs 06/02/23 08/05/23 Rx metoprolol succinate 25 mg 25 mg PO DAILY #30 tabs 07/03/23 08/05/23 Rx tablet,extended release 24 hr cholecalciferol (vitamin D3) 50 50 mcg PO DAILY 08/05/23 08/05/23 History mcg (2,000 unit) capsule (Vitamin D3) cyanocobalamin (vitamin B-12) 1,000 mcg PO DAILY 08/05/23 08/05/23 History 1,000 mcg tablet (Vitamin B-12) fexofenadine 180 mg tablet 180 mg PO DAILY 08/05/23 08/05/23 History multivitamin 1 tab PO DAILY 08/05/23 08/05/23 History cyclobenzaprine 5 mg tablet 5 mg PO Q8H PRN muscle spasm #20 08/08/23 Rx tabs ferrous gluconate 324 mg (38 mg 324 mg PO DAILY #30 tabs 08/08/23 Rx iron) tablet tramadol 50 mg tablet 50 mg PO Q4H PRN pain #30 tabs 08/08/23 Rx Hospital Stay Data Consultations Orthopedics Procedures Performed Operation Date: 08/07/23 12:00 Actual Procedures p Right tibia open reduction, internal fixation, intramedullary nail(Right) - Nirav Jovana Islas MD Diagnostic Imagining Performed 08/07/23 12:00 FL tibia/fibula RT 2V Routine Tibia/Fibula X-Ray 08/05/23 20:48 RIGHT TIBIA AND FIBULA 2 VIEWS CLINICAL HISTORY: Trauma. Right leg injury. FINDINGS: AP and crosstable lateral views of the right tibia and fibula are obtained. No prior studies are available for comparison at the time of dictation. The skeletal structures are well-mineralized. There is a comminuted spiral fracture through the distal tibial shaft. Overlying soft tissue edema is observed. There is medial displacement of the distal fragment by up to 6 mm. No fibular fracture is seen. The knee and ankle joints are grossly maintained. IMPRESSION: Distal tibial fracture as above with overlying soft tissue edema. Electronically signed by: Shaun Alex M.D. 08/05/2023 10:12 PM Tibia/Fibula X-Ray 08/07/23 12:00 INTRAOPERATIVE RADIOGRAPHS CLINICAL HISTORY: Open reduction and internal fixation of the right tibia. Fluoro time: 109 seconds Ka,r: 5.67 mGy FINDINGS: 6 spot fluoroscopic views of the right tibia are presented. An intertrochanteric nail has been placed transfixing a spiral fracture of the distal tibial shaft. Near anatomic alignment is restored. 2 cortical lag screws transfix both the proximal and distal ends of the intramedullary nail. The orthopedic hardware appears intact. IMPRESSION: Intraoperative images from open reduction and internal fixation of a right tibial fracture. Electronically signed by: Shaun Alex M.D. 08/07/2023 3:56 PM 08/08/23 06:42 08/08/23 06:42 Pending Results Patient Have Any Pending Studies at Discharge: No Discharge Instructions Given to Patient (Per Discharging Provider) Pain control: acetaminophen and tramadol as needed -safest to keep acetaminophen to maximum 3000 mg / 24h but 4000 mg is ok occasionally cyclobenzaprine as needed for muscle spasm anemia - due to fracture and surgery I wrote the iron prescription for daily, but every other day iron supplement is less constipating and as effective as daily or bid - also make sure to get plenty of iron from food You can also take vitamin C 500 mg with the iron supplement - but its not clear that vitamin C is effective in increasing iron stores - at least one RCT says not follow up in primary care for repeat CBC in 4-6 weeks to make sure anemia resolving constipation over the counter miralax daily or as needed senna 1-2 tabs daily as needed dulcolax tab or suppository if these are ineffective I think that stool softeners like docusate are ineffective, but some people find them helpful Your urinalysis was normal. Urine sometimes can be smelly from antibiotics - cefazolin was given at the time of the surrgical incision It was a pleasure taking care of you in the hospital, Jenny Ervin MD Home Health Attestation I certify that this patient is under my care and that I, or a physicians audiology assistant working with me, had a face to-face encounter that meets the home health [id number] encounter requirements with this patient. The encounter with the patient was in whole, or in part, for the following medical condition, which is the primary reason for home health care (list medical condition): right tibia fracture I certify that, based on my findings, the following services are medically necessary home health services: physical therapy My clinical findings support the need for the above services because: nonweightbearing RLE because of recover from ORIF for tibia fracture, requiring physical therapy for rehabilitation for fracture repair, requiring walker Further, I certify that my clinical findings support that this patient is homebound (i.e. absences from home require considerable and taxing effort and are for medical reasons or moravian services or infrequently or of short duration when for other reasons) because: RLE fracture and nonweightbearing status are causing significantly reduced and painful mobility Certification for Home Health Services: Based on the above findings, I certify that this patient is confined to the home and needs intermittent assisted care, physical therapy and/or speech therapy or continues to need occupational therapy. The patient is under my care, and I have initiated the establishment of the plan of care. This patient will be followed by a physician who will periodically review the plan of care. Total Time Total Time Spent Total Time Spent (In Minutes): I personally spent: 45 minutes today on clinical care activities including: reviewing chart notes and vital signs reviewing labs discussion with mobile sales consultant - orthopedic discussion with complex care nurse practitioner, ordering walker and home health services examining and counseling the patient writing orders documentation Coding Level of Care Code 82831 INP/OBS DISCH >30 MIN Diagnoses Closed right tibial fracture S82.301A Encounter type: initial encounter Fracture morphology: unspecified fracture morphology Tibia location: distal Chronic anticoagulation Z79.01 Atrial flutter, unspecified type I48.92 Atrial flutter type: unspecified Acute kidney injury superimposed on CKD N17.9; N18.9 Acute blood loss anemia D62 Chronic kidney disease, stage III (moderate) N18.30 Mitral regurgitation I34.0 Aortic valve insufficiency I35.1 LVH (left ventricular hypertrophy) I51.7 Gastroesophageal reflux disease without esophagitis K21.9 Esophagitis presence: without esophagitis
== END 2023-08-08 16:00 | disposition home health service (06) | DRG 493 ==
LOC: ED 19:44 → 3W 22:58 → SUATTDRO 22:58 → 3W 08-06 00:22